=== PATIENT | female | born 1985 | race Asian ===

== ENCOUNTER 2018-04-25 06:31 | Inpatient (IN) | payer OTHER ==
[2018-04-25] MEDS ORDERED: Sodium Chloride 0.9% 10 ML Syringe FLUSH PRN (07:09)
[2018-04-25] MEDS ORDERED: Ondansetron 4 MG/2 ML SDV IVPUSH ONE (07:09)
[2018-04-25] MEDS ORDERED: HYDROmorphone 0.5 MG/0.5 ML SYRINGE IVPUSH ONE (07:09)
[2018-04-25] MEDS ORDERED: Famotidine 20 MG/2 ML SDV IVPUSH ONE (07:09)
[2018-04-25] MEDS ORDERED: Sodium Chloride 0.9% 1,000 ML IV SCH ×3 (07:15→12:00)
--- NOTE | 2018-04-25 07:40 | EDM.PDOC ---
ED HPI GENERAL MEDICAL PROBLEM - General Chief Complaint: Abdominal Pain Stated Complaint: ABDOMINAL PAIN Time Seen by Provider: 04/25/18 07:02 Source of Information: Reports: Patient, RN Notes Reviewed - History of Present Illness INITIAL COMMENTS - FREE TEXT/NARRATIVE: 32-year-old female onset of abdominal pain 2-1/2 days ago. This was associated with nausea, vomiting and diarrhea. The diarrhea stopped yesterday but she continues with right-sided abdominal pain with some radiation to her back and continued nausea and vomiting, especially if she does try to eat or drink. No obvious fever. The diarrhea initially was watery. The pain is fairly persistent , had difficulty sleeping last night. No prior abdominal surgeries. She has had somewhat frequent episodes of similar pain vomiting and diarrhea in the past. Her gallbladder has been looked at in the past, has not been found to have gallbladder disease. Right Abdomen Pain Score (Numeric/FACES): 10 - Related Data Allergies Allergy/AdvReac Type Severity Reaction Status Date / Time No Known Allergies Allergy Verified 04/25/18 06:38 Home Meds: Home Meds Levothyroxine [Synthroid] 50 mcg PO DAILY 04/25/18 [History] Past Medical History - Past Health History Medical/Surgical History: Denies Medical/Surgical History - Past Surgical History Female Surgical History: Reports: Section Social & Family History - Tobacco Use Smoking Status *Q: Never Smoker - Recreational Drug Use Recreational Drug Use: No ED ROS GENERAL - Review of Systems Review Of Systems: See Below Constitutional: Denies: Fever, Chills HEENT: Denies: Sinus Problem, Throat Pain Respiratory: Denies: Shortness of Breath, Pleuritic Chest Pain Cardiovascular: Denies: Chest Pain GI/Abdominal: Reports: Abdominal Pain, Diarrhea, Nausea, Vomiting. Denies: Hematochezia, Melena : Reports: No Symptoms Musculoskeletal: Reports: Back Pain Skin: Reports: No Symptoms Neurological: Reports: No Symptoms ED EXAM, GI/ABD - Physical Exam Exam: See Below General Appearance: Alert, Mild Distress Eyes: Bilateral: Normal Appearance Throat/Mouth: Other (Oral mucosa is dry) Head: No: Facial Swelling Neck: Supple, Full Range of Motion Respiratory/Chest: No Respiratory Distress, Lungs Clear, Normal Breath Sounds Cardiovascular: Regular Rate, Rhythm GI/Abdominal Exam: Soft, Tender (Mild tenderness Right mid abdomen, right flank) . No: Guarding, Rebound Back Exam: Normal Inspection, CVA Tenderness (R) (Very mild). No: Paraspinal Tenderness, Vertebral Tenderness Extremities: Normal Inspection, Normal Range of Motion Neurological: Alert, Oriented, No Motor/Sensory Deficits Skin Exam: Warm, Dry, Normal Color Course - Vital Signs Last Recorded V/S: Last Vital Signs Temp 97.9 F 04/25/18 06:38 Pulse 89 04/25/18 06:38 Resp 16 04/25/18 13:30 BP 128/84 04/25/18 06:38 Pulse Ox 98 04/25/18 13:30 - Orders/Labs/Meds Orders: Active Orders 24 hr Category Date Time Status Patient Status [ADT] Routine ADT 04/25/18 12:30 Active Patient Status [ADT] Routine ADT 04/25/18 15:36 Active Ambulate [RC] ASDIRECTED Care 04/25/18 15:36 Active Communication Order [RC] ROUTINE Care 04/25/18 14:05 Active Cooling Warming Measures [RC] ASDIRECTED Care 04/25/18 14:05 Active Drain Management [RC] QSHIFT Care 04/25/18 15:38 Active Notify Provider [RC] ASDIRECTED Care 04/25/18 14:06 Active Oxygen Therapy [RC] ASDIRECTED Care 04/25/18 14:05 Active Oxygen Therapy [RC] PRN Care 04/25/18 15:36 Active Patient to Empty Bladder [RC] ASDIRECTED Care 04/25/18 11:48 Active Peripheral IV Care [RC] . DIRECTED Care 04/25/18 07:09 Active Pulse Oximetry [RC] ASDIRECTED Care 04/25/18 14:05 Active RT Incentive Spirometry [RC] ASDIRECTED Care 04/25/18 15:36 Active Up ad Rae [RC] ASDIRECTED Care 04/25/18 15:36 Active Up to Chair [RC] ASDIRECTED Care 04/25/18 15:36 Active Verify Patient Consent Obtain [RC] ASDIRECTED Care 04/25/18 11:48 Active Vital Signs [RC] PER UNIT ROUTINE Care 04/25/18 15:36 Active Vital Signs [RC] Q15M Care 04/25/18 14:05 Active Clear Liquid Diet [DIET] Diet 04/25/18 Dinner Active Nothing Per Oral Diet [DIET] Diet 04/25/18 Lunch Active CULTURE URINE [RM] Stat Lab 04/25/18 07:13 Received HCG QUALITATIVE,URINE [URCHEM] Stat Lab 04/25/18 07:13 Ordered UA W/MICROSCOPIC [URIN] Stat Lab 04/25/18 07:13 Ordered Acetaminophen/HYDROcodone [[place] 325-5 MG] Med 04/25/18 15:36 Active 1 tab PO Q4H PRN HYDROmorphone [Dilaudid] Med 04/25/18 14:15 Active 0.5 mg IVPUSH ASDIRECTED PRN Levothyroxine [Synthroid] Med 04/26/18 06:00 Active 50 mcg PO ACBREAKFAST Meperidine [Demerol] Med 04/25/18 14:06 Active 12.5 mg IVPUSH ONETIME PRN Ondansetron [Zofran] Med 04/25/18 15:36 Active 4 mg IVPUSH Q6H PRN Sodium Chloride 0.9% [Normal Saline] 1,000 ml Med 04/25/18 12:00 Active IV ASDIRECTED Sodium Chloride 0.9% [Normal Saline] 1,000 ml Med 04/25/18 15:45 Active IV ASDIRECTED Sodium Chloride 0.9% [Normal Saline] 1,000 ml Med 04/25/18 07:15 Active IV ONETIME Sodium Chloride 0.9% [Saline Flush] Med 04/25/18 07:09 Active 10 ml FLUSH ASDIRECTED PRN cefOXitin [Mefoxin in Dextrose,Iso-Osm 2 GM/50 ML] 2 gm Med 04/25/18 18:00 Active Premix Bag 1 bag IV Q6HR diphenhydrAMINE [Benadryl] Med 04/25/18 14:06 Active 25 mg IVPUSH Q6H PRN fentaNYL [Sublimaze] Med 04/25/18 15:36 Active 25 mcg IVPUSH Q1H PRN fentaNYL [Sublimaze] Med 04/25/18 14:06 Active 50 mcg IVPUSH Q5M PRN Abdominal Binder [OM.PC] Per Unit Routine Ot 04/25/18 15:37 Ordered Peripheral IV Insertion Adult [OM.PC] Stat Oth 04/25/18 07:09 Ordered Schedule Procedure [COMM] Routine Oth 04/25/18 11:48 Ordered Schedule Procedure [COMM] Stat Oth 04/25/18 12:30 Ordered Resuscitation Status Routine Resus Stat 04/25/18 11:48 Ordered Medication Orders Hydrocodone Bitart/Acetaminophen ([place] 325-5 Mg) 1 tab PO Q4H PRN PRN Reason: Pain (moderate 4-6) Diphenhydramine HCl (Benadryl) 25 mg IVPUSH Q6H PRN PRN Reason: Pruritis Fentanyl (Sublimaze) 50 mcg IVPUSH Q5M PRN PRN Reason: Pain Fentanyl (Sublimaze) 25 mcg IVPUSH Q1H PRN PRN Reason: Pain (severe 7-10) Stop: 04/26/18 15:39 Hydromorphone HCl (Dilaudid) 0.5 mg IVPUSH ASDIRECTED PRN PRN Reason: PAIN Sodium Chloride (Normal Saline) 1,000 mls @ 999 mls/hr IV ONETIME KVNG Last Admin: 04/25/18 07:33 Dose: 999 mls/hr Sodium Chloride (Normal Saline) 1,000 mls @ 125 mls/hr IV ASDIRECTED KVNG Sodium Chloride (Normal Saline) 1,000 mls @ 125 mls/hr IV ASDIRECTED KVNG Cefoxitin Sodium 2 gm/ Premix 50 mls @ 100 mls/hr IV Q6HR KVNG Levothyroxine Sodium (Synthroid) 50 mcg PO ACBREAKFAST KVNG Meperidine HCl (Demerol) 12.5 mg IVPUSH ONETIME PRN PRN Reason: Shivering Ondansetron HCl (Zofran) 4 mg IVPUSH Q6H PRN PRN Reason: Nausea/Vomiting Sodium Chloride (Saline Flush) 10 ml FLUSH ASDIRECTED PRN PRN Reason: Keep Vein Open Last Admin: 04/25/18 07:36 Dose: 10 ml Labs: Laboratory Tests 04/25/18 04/25/18 04/25/18 Range/Units 07:13 07:13 07:25 WBC 19.08 H (3.98-10.04) K/mm3 RBC 3.95 L (3.98-5.22) M/mm3 Hgb 11.8 (11.2-15.7) gm/L Hct 35.4 (34.1-44.9) % MCV 89.6 (79.4-94.8) fl MCH 29.9 (25.6-32.2) pg MCHC 33.3 (32.2-35.5) g/dl RDW Std Deviation 40.8 (36.4-46.3) fL Plt Count 333 (182-369) K/mm3 MPV 8.7 L (9.4-12.3) fl Neut % (Auto) 87.7 H (34.0-71.1) % Lymph % (Auto) 5.1 L (19.3-51.7) % [place] % (Auto) 6.7 (4.7-12.5) % Eos % (Auto) 0.1 L (0.7-5.8) Baso % (Auto) 0.1 (0.1-1.2) % Neut # (Auto) 16.75 H (1.56-6.13) K/mm3 Lymph # (Auto) 0.97 L (1.18-3.74) K/mm3 [place] # (Auto) 1.28 H (0.24-0.36) K/mm3 Eos # (Auto) 0.01 L (0.04-0.36) K/mm3 Baso # (Auto) 0.01 (0.01-0.08) K/mm3 Manual Slide Review Normal smear Sodium (136-145) mEq/L Potassium (3.5-5.1) mEq/L Chloride (98-107) mEq/L Carbon Dioxide (21-32) mEq/L Anion Gap (5-15) BUN (7-18) mg/dL Creatinine (0.55-1.02) mg/dL Est Cr Clr Drug Dosing mL/min Estimated GFR (MDRD) (>60) mL/min BUN/Creatinine Ratio (14-18) Glucose (74-106) mg/dL Calcium (8.5-10.1) mg/dL Total Bilirubin (0.2-1.0) mg/dL GGT (5-55) U/L AST (15-37) U/L ALT (14-59) U/L Alkaline Phosphatase (46-116) U/L Total Protein (6.4-8.2) g/dl Albumin (3.4-5.0) g/dl Globulin gm/dL Albumin/Globulin Ratio (1-2) Urine Color Bree H (Yellow) Urine Appearance Clear (Clear) Urine pH 6.5 (5.0-8.0) Ur Specific [place] > or = 1.030 (1.005-1.030) Urine Protein 2+ H (Negative) Urine Glucose (UA) Negative (Negative) Urine Ketones 3+ H (Negative) Urine Occult Blood 2+ H (Negative) Urine Nitrite Positive H (Negative) Urine Bilirubin 1+ H (Negative) Urine Urobilinogen 1.0 (0.2-1.0) Ur Leukocyte Esterase Negative (Negative) Urine RBC 10-20 H (0-5) /hpf Urine WBC 0-5 (0-5) /hpf Ur Epithelial Cells 5-10 H (0-5) /hpf Urine Bacteria Moderate H (FEW) /hpf Urine Mucus Moderate H (FEW) /hpf Urine HCG, Qual Negative (NEGATIVE) 04/25/18 04/25/18 Range/Units 07:25 07:25 WBC (3.98-10.04) K/mm3 RBC (3.98-5.22) M/mm3 Hgb (11.2-15.7) gm/L Hct (34.1-44.9) % MCV (79.4-94.8) fl MCH (25.6-32.2) pg MCHC (32.2-35.5) g/dl RDW Std Deviation (36.4-46.3) fL Plt Count (182-369) K/mm3 MPV (9.4-12.3) fl Neut % (Auto) (34.0-71.1) % Lymph % (Auto) (19.3-51.7) % [place] % (Auto) (4.7-12.5) % Eos % (Auto) (0.7-5.8) Baso % (Auto) (0.1-1.2) % Neut # (Auto) (1.56-6.13) K/mm3 Lymph # (Auto) (1.18-3.74) K/mm3 [place] # (Auto) (0.24-0.36) K/mm3 Eos # (Auto) (0.04-0.36) K/mm3 Baso # (Auto) (0.01-0.08) K/mm3 Manual Slide Review Sodium 136 (136-145) mEq/L Potassium 3.3 L (3.5-5.1) mEq/L Chloride 102 (98-107) mEq/L Carbon Dioxide 25 (21-32) mEq/L Anion Gap 12.3 (5-15) BUN 9 (7-18) mg/dL Creatinine 0.6 (0.55-1.02) mg/dL Est Cr Clr Drug Dosing 118.88 mL/min Estimated GFR (MDRD) > 60 (>60) mL/min BUN/Creatinine Ratio 15.0 (14-18) Glucose 121 H (74-106) mg/dL Calcium 8.9 (8.5-10.1) mg/dL Total Bilirubin 1.5 H (0.2-1.0) mg/dL GGT 56 H (5-55) U/L AST 41 H (15-37) U/L ALT 89 H (14-59) U/L Alkaline Phosphatase 98 (46-116) U/L Total Protein 8.5 H (6.4-8.2) g/dl Albumin 3.4 (3.4-5.0) g/dl Globulin 5.1 gm/dL Albumin/Globulin Ratio 0.7 L (1-2) Urine Color (Yellow) Urine Appearance (Clear) Urine pH (5.0-8.0) Ur Specific [place] (1.005-1.030) Urine Protein (Negative) Urine Glucose (UA) (Negative) Urine Ketones (Negative) Urine Occult Blood (Negative) Urine Nitrite (Negative) Urine Bilirubin (Negative) Urine Urobilinogen (0.2-1.0) Ur Leukocyte Esterase (Negative) Urine RBC (0-5) /hpf Urine WBC (0-5) /hpf Ur Epithelial Cells (0-5) /hpf Urine Bacteria (FEW) /hpf Urine Mucus (FEW) /hpf Urine HCG, Qual (NEGATIVE) Meds: Medications Generic Name Dose Route Start Last Admin Trade Name Freq PRN Reason Stop Dose Admin Hydrocodone Bitart/Acetaminophen 1 tab 04/25/18 15:36 [place] 325-5 Mg PO Q4H PRN Pain (moderate 4-6) Diphenhydramine HCl 25 mg 04/25/18 14:06 Benadryl IVPUSH Q6H PRN Pruritis Fentanyl 50 mcg 04/25/18 14:06 Sublimaze IVPUSH Q5M PRN Pain Fentanyl 25 mcg 04/25/18 15:36 Sublimaze IVPUSH 04/26/18 15:39 Q1H PRN Pain (severe 7-10) Hydromorphone HCl 0.5 mg 04/25/18 14:15 Dilaudid IVPUSH ASDIRECTED PRN PAIN Sodium Chloride 1,000 mls @ 999 mls/hr 04/25/18 07:15 04/25/18 07:33 Normal Saline IV 999 mls/hr ONETIME KVNG Administration Sodium Chloride 1,000 mls @ 125 mls/hr 04/25/18 12:00 Normal Saline IV ASDIRECTED KVNG Sodium Chloride 1,000 mls @ 125 mls/hr 04/25/18 15:45 Normal Saline IV ASDIRECTED KVNG Cefoxitin Sodium 2 gm/ Premix 50 mls @ 100 mls/hr 04/25/18 18:00 IV Q6HR KVNG Levothyroxine Sodium 50 mcg 04/26/18 06:00 Synthroid PO ACBREAKFAST KVNG Meperidine HCl 12.5 mg 04/25/18 14:06 Demerol IVPUSH ONETIME PRN Shivering Ondansetron HCl 4 mg 04/25/18 15:36 Zofran IVPUSH Q6H PRN Nausea/Vomiting Sodium Chloride 10 ml 04/25/18 07:09 04/25/18 07:36 Saline Flush FLUSH 10 ml ASDIRECTED PRN Administration Keep Vein Open Discontinued Medications Generic Name Dose Route Start Last Admin Trade Name Freq PRN Reason Stop Dose Admin Albuterol Confirm 04/25/18 13:54 Proventil Hfa Administered 04/25/18 13:55 Dose 6.7 gm INH .STK-MED ONE Bupivacaine HCl/Epinephrine Bitart Confirm 04/25/18 12:08 04/25/18 12:53 Marcaine 0.5%/Epinephrine 1:200,000 Administered 04/25/18 12:09 50 ml Dose Administration 50 ml .ROUTE .STK-MED ONE Dexamethasone Confirm 04/25/18 12:11 Dexamethasone Administered 04/25/18 12:12 Dose 20 mg .ROUTE .STK-MED ONE Famotidine 20 mg 04/25/18 07:09 04/25/18 07:33 Pepcid IVPUSH 04/25/18 07:10 20 mg ONETIME ONE Administration Fentanyl Confirm 04/25/18 12:11 Sublimaze Administered 04/25/18 12:12 Dose 250 mcg .ROUTE .STK-MED ONE Haloperidol Lactate 1 mg 04/25/18 14:06 Haldol IVPUSH 04/25/18 14:07 ONETIME ONE Hydromorphone HCl 0.5 mg 04/25/18 07:09 04/25/18 07:34 Dilaudid IVPUSH 04/25/18 07:10 0.5 mg ONETIME ONE Administration Hydromorphone HCl Confirm 04/25/18 12:52 Dilaudid Administered 04/25/18 12:53 Dose 0.5 mg .ROUTE .STK-MED ONE Hydromorphone HCl Confirm 04/25/18 14:04 Dilaudid Administered 04/25/18 14:05 Dose 0.5 mg .ROUTE .STK-MED ONE Piperacillin Sod/Tazobactam 100 mls @ 200 mls/hr 04/25/18 08:06 04/25/18 08: 17 Sod 4.5 gm/ Sodium Chloride IV 04/25/18 08:35 200 mls/hr ONETIME ONE Administration Sodium Chloride 1,000 mls @ 75 mls/hr 04/25/18 08:30 04/25/18 08:33 Normal Saline IV 75 mls/hr ASDIRECTED KVNG Administration Lactated Ringer's Confirm 04/25/18 12:10 Ringers, Lactated Administered 04/25/18 12:11 Dose 2,000 mls @ as directed .ROUTE .STK-MED ONE Lidocaine HCl Confirm 04/25/18 12:11 Xylocaine-Mpf 1% Administered 04/25/18 12:12 Dose 4 mls @ as directed .ROUTE .STK-MED ONE Ketamine HCl Confirm 04/25/18 13:13 Ketalar Administered 04/25/18 13:14 Dose 500 mg .ROUTE .STK-MED ONE Ketorolac Tromethamine Confirm 04/25/18 14:40 Toradol Administered 04/25/18 14:41 Dose 30 mg .ROUTE .STK-MED ONE Lidocaine/Epinephrine Confirm 04/25/18 12:08 04/25/18 12:53 Xylocaine 1% With Epinephrine 1:100,000 Administered 04/25/18 12:09 20 ml Dose Administration 20 ml .ROUTE .STK-MED ONE Midazolam HCl Confirm 04/25/18 12:11 Versed 1 Mg/Ml Administered 04/25/18 12:12 Dose 2 mg .ROUTE .STK-MED ONE Ondansetron HCl 4 mg 04/25/18 07:09 04/25/18 07:33 Zofran IVPUSH 04/25/18 07:10 4 mg ONETIME ONE Administration Ondansetron HCl Confirm 04/25/18 12:10 Zofran Administered 04/25/18 12:11 Dose 4 mg .ROUTE .STK-MED ONE Propofol Confirm 04/25/18 12:10 Diprivan 20 Ml Administered 04/25/18 12:11 Dose 400 mg .ROUTE .STK-MED ONE Propofol Confirm 04/25/18 13:19 Diprivan 20 Ml Administered 04/25/18 13:20 Dose 200 mg .ROUTE .STK-MED ONE Rocuronium [place] Confirm 04/25/18 12:10 Zemuron Administered 04/25/18 12:11 Dose 50 mg .ROUTE .STK-MED ONE Succinylcholine Chloride Confirm 04/25/18 12:10 Succinylcholine In Ns Pf Administered 04/25/18 12:11 Dose 100 mg .ROUTE .STK-MED ONE - Re-Assessments/Exams Free Text/Narrative Re-Assessment/Exam: 04/25/18 08:09 White blood count elevated, about 19,000. Liver enzymes slightly elevated, bilirubin 1.5. Urine is dark. Pain is better after Dilaudid 0.5 mg IV but she continues to have moderate tenderness of the right upper quadrant and does have a positive Helton's sign as well. We will get an ultrasound of her gallbladder. I'm going to check a GGT. She may have an ascending cholangitis. I'm going to start Zosyn 4.5 g IV. She also does have moderate bacteria in the urine on micro -, nitrite positive, urine culture has been ordered. 04/25/18 11:15. There has been some delay waiting for radiology report but now I do have that. Report verifies gallbladder filled with what appears to be sludge. Gallbladder wall mildly thickened. Common bile duct and common hepatic duct not visualized, see report for details. Discussed with Dr. Archer our general surgeon battery container finishing hand. He will be in very shortly to visit with patient with planned surgery today. Departure - Departure Time of Disposition: 11:25 Disposition: DC/Tfer to [facility] Condition: Fair Clinical Impression: Cholecystitis - Discharge Information - My Orders Last 24 Hours: My Active Orders 04/25/18 07:09 Peripheral IV Care [RC] . DIRECTED Sodium Chloride 0.9% [Saline Flush] 10 ml FLUSH ASDIRECTED PRN Peripheral IV Insertion Adult [OM.PC] Stat 04/25/18 07:13 CULTURE URINE [RM] Stat 04/25/18 07:15 Sodium Chloride 0.9% [Normal Saline] 1,000 ml IV ONETIME - Assessment/Plan Last 24 Hours: My Active Orders 04/25/18 07:09 Peripheral IV Care [RC] . DIRECTED Sodium Chloride 0.9% [Saline Flush] 10 ml FLUSH ASDIRECTED PRN Peripheral IV Insertion Adult [OM.PC] Stat 04/25/18 07:13 CULTURE URINE [RM] Stat 04/25/18 07:15 Sodium Chloride 0.9% [Normal Saline] 1,000 ml IV ONETIME
[2018-04-25] MEDS ORDERED: Piperacillin/Tazobactam 4.5 GM in Sodium Chloride 0.9% 100 ML IV ONE (08:06)
--- NOTE | 2018-04-25 11:11 | US ---
Limited abdominal ultrasound: Multiple real-time images were obtained of the right upper abdomen. Liver is not optimally seen due to bowel gas and body habitus. No discrete focal abnormality is seen within the liver. Gallbladder is filled with material presumably due sludge as I do not see any significant shadowing to indicate gallstones. Gallbladder wall is slightly prominent in size. CHD and CBD could not be visualized. Right kidney shows no hydronephrosis or discrete mass. Pancreas is partially obscured by bowel gas. No focal abnormality is seen within the visualized pancreas. Inferior vena cava is patent. Portal vein shows normal hepatopedal flow. Impression: 1. Less than optimal study due to patient body habitus and bowel gas. 2. Gallbladder filled with material which appears to be sludge as I do not see any significant shadowing to indicate gallstones. Gallbladder wall is mildly prominent. 3. CHD and CBD could not be visualized. Diagnostic code #3
--- NOTE | 2018-04-25 11:54 | PCM.HP ---
H&P History of Present Illness - General Date of Service: 04/25/18 Source of Information: Patient, Provider - History of Present Illness Initial Comments - Free Text/Narative: 32-year-old female has had intermittent episodes of upper abdominal pain beginning last winter. She has been evaluated for cholelithiasis and biliary colic but all previous studies for unremarkable and so she's never had a cholecystectomy. She's been on an antiacid for reflux symptoms. Yesterday she experienced severe right upper quadrant abdominal pain which was associated with anorexia nausea and emesis. She presented to the emergency room for evaluation and was found to have a leukocytosis of 19,000 and an ultrasound of the right upper quadrant which showed biliary sludge. Because of overlying bowel the airport security screener could not visualize the common bile duct. Her bilirubin was slightly elevated. I was asked to see her for cholecystectomy. Right Abdomen Pain Score (Numeric/FACES): 10 - Related Data Allergies/Adverse Reactions: Allergies Allergy/AdvReac Type Severity Reaction Status Date / Time No Known Allergies Allergy Verified 04/25/18 06:38 Home Medications: Home Meds Levothyroxine [Synthroid] 50 mcg PO DAILY 04/25/18 [History] Past Medical History - Past Health History Medical/Surgical History: Denies Medical/Surgical History - Past Surgical History Female Surgical History: Reports: Section Social & Family History - Tobacco Use Smoking Status *Q: Never Smoker - Recreational Drug Use Recreational Drug Use: No H&P Review of Systems - Review of Systems: Review Of Systems: ROS reveals no pertinent complaints other than HPI. Exam - Exam Exam: See Below - Vital Signs Vital Signs: Last Vital Signs Temp 36.6 C 04/25/18 06:38 Pulse 89 04/25/18 06:38 Resp 16 04/25/18 06:38 BP 128/84 04/25/18 06:38 Pulse Ox 98 04/25/18 06:38 Weight: 90.718 kg - Exam General: Alert, Oriented, Cooperative, Mild Distress HEENT: EOMI, Hearing Intact Neck: Supple, Trachea Midline Lungs: Clear to Auscultation, Normal Respiratory Effort Cardiovascular: Regular Rate, Regular Rhythm, Normal S1, Normal S2 GI/Abdominal Exam: Tender (Right upper quadrant) (Female) Exam: Deferred Rectal (Female) Exam: Deferred Back Exam: Normal Inspection Extremities: Non-Tender Skin: Warm, Dry, Intact, Incision (Pfannenstiel) Neuro Extensive - Mental Status: Alert, Oriented x3, Normal Mood/Affect, Normal Cognition Psychiatric: Alert, Normal Affect, Normal Mood - Patient Data Lab Results Last 24 hrs: Laboratory Results - last 24 hr 04/25/18 04/25/18 04/25/18 Range/Units 07:13 07:13 07:25 WBC 19.08 H (3.98-10.04) K/mm3 RBC 3.95 L (3.98-5.22) M/mm3 Hgb 11.8 (11.2-15.7) gm/L Hct 35.4 (34.1-44.9) % MCV 89.6 (79.4-94.8) fl MCH 29.9 (25.6-32.2) pg MCHC 33.3 (32.2-35.5) g/dl RDW Std Deviation 40.8 (36.4-46.3) fL Plt Count 333 (182-369) K/mm3 MPV 8.7 L (9.4-12.3) fl Neut % (Auto) 87.7 H (34.0-71.1) % Lymph % (Auto) 5.1 L (19.3-51.7) % [place] % (Auto) 6.7 (4.7-12.5) % Eos % (Auto) 0.1 L (0.7-5.8) Baso % (Auto) 0.1 (0.1-1.2) % Neut # (Auto) 16.75 H (1.56-6.13) K/mm3 Lymph # (Auto) 0.97 L (1.18-3.74) K/mm3 [place] # (Auto) 1.28 H (0.24-0.36) K/mm3 Eos # (Auto) 0.01 L (0.04-0.36) K/mm3 Baso # (Auto) 0.01 (0.01-0.08) K/mm3 Manual Slide Review Normal smear Sodium (136-145) mEq/L Potassium (3.5-5.1) mEq/L Chloride (98-107) mEq/L Carbon Dioxide (21-32) mEq/L Anion Gap (5-15) BUN (7-18) mg/dL Creatinine (0.55-1.02) mg/dL Est Cr Clr Drug Dosing mL/min Estimated GFR (MDRD) (>60) mL/min BUN/Creatinine Ratio (14-18) Glucose (74-106) mg/dL Calcium (8.5-10.1) mg/dL Total Bilirubin (0.2-1.0) mg/dL GGT (5-55) U/L AST (15-37) U/L ALT (14-59) U/L Alkaline Phosphatase (46-116) U/L Total Protein (6.4-8.2) g/dl Albumin (3.4-5.0) g/dl Globulin gm/dL Albumin/Globulin Ratio (1-2) Urine Color Bree H (Yellow) Urine Appearance Clear (Clear) Urine pH 6.5 (5.0-8.0) Ur Specific [place] > or = 1.030 (1.005-1.030) Urine Protein 2+ H (Negative) Urine Glucose (UA) Negative (Negative) Urine Ketones 3+ H (Negative) Urine Occult Blood 2+ H (Negative) Urine Nitrite Positive H (Negative) Urine Bilirubin 1+ H (Negative) Urine Urobilinogen 1.0 (0.2-1.0) Ur Leukocyte Esterase Negative (Negative) Urine RBC 10-20 H (0-5) /hpf Urine WBC 0-5 (0-5) /hpf Ur Epithelial Cells 5-10 H (0-5) /hpf Urine Bacteria Moderate H (FEW) /hpf Urine Mucus Moderate H (FEW) /hpf Urine HCG, Qual Negative (NEGATIVE) 04/25/18 04/25/18 Range/Units 07:25 07:25 WBC (3.98-10.04) K/mm3 RBC (3.98-5.22) M/mm3 Hgb (11.2-15.7) gm/L Hct (34.1-44.9) % MCV (79.4-94.8) fl MCH (25.6-32.2) pg MCHC (32.2-35.5) g/dl RDW Std Deviation (36.4-46.3) fL Plt Count (182-369) K/mm3 MPV (9.4-12.3) fl Neut % (Auto) (34.0-71.1) % Lymph % (Auto) (19.3-51.7) % [place] % (Auto) (4.7-12.5) % Eos % (Auto) (0.7-5.8) Baso % (Auto) (0.1-1.2) % Neut # (Auto) (1.56-6.13) K/mm3 Lymph # (Auto) (1.18-3.74) K/mm3 [place] # (Auto) (0.24-0.36) K/mm3 Eos # (Auto) (0.04-0.36) K/mm3 Baso # (Auto) (0.01-0.08) K/mm3 Manual Slide Review Sodium 136 (136-145) mEq/L Potassium 3.3 L (3.5-5.1) mEq/L Chloride 102 (98-107) mEq/L Carbon Dioxide 25 (21-32) mEq/L Anion Gap 12.3 (5-15) BUN 9 (7-18) mg/dL Creatinine 0.6 (0.55-1.02) mg/dL Est Cr Clr Drug Dosing 118.88 mL/min Estimated GFR (MDRD) > 60 (>60) mL/min BUN/Creatinine Ratio 15.0 (14-18) Glucose 121 H (74-106) mg/dL Calcium 8.9 (8.5-10.1) mg/dL Total Bilirubin 1.5 H (0.2-1.0) mg/dL GGT 56 H (5-55) U/L AST 41 H (15-37) U/L ALT 89 H (14-59) U/L Alkaline Phosphatase 98 (46-116) U/L Total Protein 8.5 H (6.4-8.2) g/dl Albumin 3.4 (3.4-5.0) g/dl Globulin 5.1 gm/dL Albumin/Globulin Ratio 0.7 L (1-2) Urine Color (Yellow) Urine Appearance (Clear) Urine pH (5.0-8.0) Ur Specific [place] (1.005-1.030) Urine Protein (Negative) Urine Glucose (UA) (Negative) Urine Ketones (Negative) Urine Occult Blood (Negative) Urine Nitrite (Negative) Urine Bilirubin (Negative) Urine Urobilinogen (0.2-1.0) Ur Leukocyte Esterase (Negative) Urine RBC (0-5) /hpf Urine WBC (0-5) /hpf Ur Epithelial Cells (0-5) /hpf Urine Bacteria (FEW) /hpf Urine Mucus (FEW) /hpf Urine HCG, Qual (NEGATIVE) Result Diagrams: 04/25/18 07:25 04/25/18 07:25 - Problem List (1) Acute cholecystitis SNOMED Code(s): 47152414 ICD Code: K81.0 - ACUTE CHOLECYSTITIS Status: Acute Priority: Medium Current Visit: Yes (2) UTI (urinary tract infection) SNOMED Code(s): 51284990 ICD Code: N39.0 - URINARY TRACT INFECTION, SITE NOT SPECIFIED Status: Acute Priority: Low Current Visit: Yes Qualifiers: Urinary tract infection type: site unspecified Hematuria presence: without hematuria Qualified Code(s): N39.0 - Urinary tract infection, site not specified Problem List Initiated/Reviewed/Updated: Yes Orders Last 24hrs: Active Orders 24 hr Category Date Time Status Patient to Empty Bladder [RC] ASDIRECTED Care 04/25/18 11:48 Ordered Peripheral IV Care [RC] . DIRECTED Care 04/25/18 07:09 Active Verify Patient Consent Obtain [RC] ASDIRECTED Care 04/25/18 11:48 Ordered Nothing Per Oral Diet [DIET] Diet 04/25/18 Lunch Ordered CULTURE URINE [RM] Stat Lab 04/25/18 07:13 Received HCG QUALITATIVE,URINE [URCHEM] Stat Lab 04/25/18 07:13 Ordered UA W/MICROSCOPIC [URIN] Stat Lab 04/25/18 07:13 Ordered Sodium Chloride 0.9% @ 125 MLS/HR (1000ml) Med 04/25/18 12:00 Ordered Sodium Chloride 0.9% [Normal Saline] 1,000 ml IV ASDIRECTED Sodium Chloride 0.9% [Normal Saline] 1,000 ml Med 04/25/18 08:30 Active IV ASDIRECTED Sodium Chloride 0.9% [Normal Saline] 1,000 ml Med 04/25/18 07:15 Active IV ONETIME Sodium Chloride 0.9% [Saline Flush] Med 04/25/18 07:09 Active 10 ml FLUSH ASDIRECTED PRN Peripheral IV Insertion Adult [OM.PC] Stat Oth 04/25/18 07:09 Ordered Schedule Procedure [COMM] Routine Oth 04/25/18 11:48 Ordered Resuscitation Status Routine Resus Stat 04/25/18 11:48 Ordered Medication Orders Sodium Chloride (Normal Saline) 1,000 mls @ 999 mls/hr IV ONETIME KVNG Last Admin: 04/25/18 07:33 Dose: 999 mls/hr Sodium Chloride (Normal Saline) 1,000 mls @ 75 mls/hr IV ASDIRECTED KVNG Last Admin: 04/25/18 08:33 Dose: 75 mls/hr Sodium Chloride (Saline Flush) 10 ml FLUSH ASDIRECTED PRN PRN Reason: Keep Vein Open Last Admin: 04/25/18 07:36 Dose: 10 ml Assessment/Plan Comment:: I recommended laparoscopic cholecystectomy. I discussed the benefits risks as well as the alternatives with the patient. She wants to proceed as soon as possible. IV antibiotics for the acute cholecystitis should cover the common organisms associated with UTI. Plan: Laparoscopic possible open cholecystectomy.
[2018-04-25] MEDS ORDERED: Bupivacaine 0.5%/EPINEPHrine 1:200,000 50 ML MDV ONE (12:08)
[2018-04-25] MEDS ORDERED: Lidocaine 1% with EPINEPHrine 1:100,000 20 ML MDV ONE (12:08)
[2018-04-25] MEDS ORDERED: Rocuronium 50 MG/5 ML Vial ONE (12:10)
[2018-04-25] MEDS ORDERED: Succinylcholine/Normal Saline 100 MG/5 ML Syringe ONE (12:10)
[2018-04-25] MEDS ORDERED: Ondansetron 4 MG/2 ML SDV ONE (12:10)
[2018-04-25] MEDS ORDERED: Propofol 200 MG/20 ML SDV ONE ×2 (12:10→13:19)
[2018-04-25] MEDS ORDERED: Lactated Ringers 2,000 ML ONE (12:10)
[2018-04-25] MEDS ORDERED: Dexamethasone 4 MG/ML 5 ML MDV ONE (12:11)
[2018-04-25] MEDS ORDERED: Midazolam 1 MG/ML 2 ML SDV ONE (12:11)
[2018-04-25] MEDS ORDERED: Lidocaine 1% 4 ML ONE (12:11)
[2018-04-25] MEDS ORDERED: fentaNYL 250 MCG/5 ML SDV ONE (12:11)
[2018-04-25] MEDS ORDERED: HYDROmorphone 0.5 MG/0.5 ML Syringe ONE ×2 (12:52→14:04)
[2018-04-25] MEDS ORDERED: Ketamine 500 mg/10 ML MDV ONE (13:13)
--- NOTE | 2018-04-25 13:29 | PCM.PREANE ---
Preanesthetic Assessment - Anesthesia/Transfusion/Family Hx Anesthesia History: Prior Anesthesia Without Reaction Family History of Anesthesia Reaction: No Transfusion History: No Prior Transfusion(s) - Review of Systems General: Fatigue, Appetite Pulmonary: Other (Occasional Smoker.) Cardiovascular: No Symptoms Gastrointestinal: Abdominal Pain, Decreased Appetite, Nausea Neurological: No Symptoms Other: Reports: Thyroid Problems - Physical Assessment NPO Status Date: 04/24/18 NPO Status Time: 23:00 O2 Sat by Pulse Oximetry: 98 Respiratory Rate: 16 Vital Signs: Last Vital Signs Temp 36.6 C 04/25/18 06:38 Pulse 89 04/25/18 06:38 Resp 16 04/25/18 06:38 BP 128/84 04/25/18 06:38 Pulse Ox 98 04/25/18 06:38 Height: 1.65 m Weight: 90.718 kg ASA Class: 2E Mental Status: Alert & Oriented x3 Airway Class: Mallampati = 1 Dentition: Reports: Normal Dentition, Implants Thyro-Mental Finger Breadths: 2 Mouth Opening Finger Breadths: 3 ROM/Head Extension: Full Lungs: Clear to Auscultation, Normal Respiratory Effort, Decreased Breath Sounds Cardiovascular: Regular Rate, Regular Rhythm - Lab Values: Laboratory Last Values WBC 19.08 K/mm3 (3.98-10.04) H 04/25/18 07:25 RBC 3.95 M/mm3 (3.98-5.22) L 04/25/18 07:25 Hgb 11.8 gm/L (11.2-15.7) 04/25/18 07:25 Hct 35.4 % (34.1-44.9) 04/25/18 07:25 MCV 89.6 fl (79.4-94.8) 04/25/18 07:25 MCH 29.9 pg (25.6-32.2) 04/25/18 07:25 MCHC 33.3 g/dl (32.2-35.5) 04/25/18 07:25 RDW Std Deviation 40.8 fL (36.4-46.3) 04/25/18 07:25 Plt Count 333 K/mm3 (182-369) 04/25/18 07:25 MPV 8.7 fl (9.4-12.3) L 04/25/18 07:25 Neut % (Auto) 87.7 % (34.0-71.1) H 04/25/18 07:25 Lymph % (Auto) 5.1 % (19.3-51.7) L 04/25/18 07:25 [place] % (Auto) 6.7 % (4.7-12.5) 04/25/18 07:25 Eos % (Auto) 0.1 (0.7-5.8) L 04/25/18 07:25 Baso % (Auto) 0.1 % (0.1-1.2) 04/25/18 07:25 Neut # (Auto) 16.75 K/mm3 (1.56-6.13) H 04/25/18 07:25 Lymph # (Auto) 0.97 K/mm3 (1.18-3.74) L 04/25/18 07:25 [place] # (Auto) 1.28 K/mm3 (0.24-0.36) H 04/25/18 07:25 Eos # (Auto) 0.01 K/mm3 (0.04-0.36) L 04/25/18 07:25 Baso # (Auto) 0.01 K/mm3 (0.01-0.08) 04/25/18 07:25 Manual Slide Review Normal smear 04/25/18 07:25 Sodium 136 mEq/L (136-145) 04/25/18 07:25 Potassium 3.3 mEq/L (3.5-5.1) L 04/25/18 07:25 Chloride 102 mEq/L (98-107) 04/25/18 07:25 Carbon Dioxide 25 mEq/L (21-32) 04/25/18 07:25 Anion Gap 12.3 (5-15) 04/25/18 07:25 BUN 9 mg/dL (7-18) 04/25/18 07:25 Creatinine 0.6 mg/dL (0.55-1.02) 04/25/18 07:25 Est Cr Clr Drug Dosing 118.88 mL/min 04/25/18 07:25 Estimated GFR (MDRD) > 60 mL/min (>60) 04/25/18 07:25 BUN/Creatinine Ratio 15.0 (14-18) 04/25/18 07:25 Glucose 121 mg/dL (74-106) H 04/25/18 07:25 Calcium 8.9 mg/dL (8.5-10.1) 04/25/18 07:25 Total Bilirubin 1.5 mg/dL (0.2-1.0) H 04/25/18 07:25 GGT 56 U/L (5-55) H 04/25/18 07:25 AST 41 U/L (15-37) H 04/25/18 07:25 ALT 89 U/L (14-59) H 04/25/18 07:25 Alkaline Phosphatase 98 U/L (46-116) 04/25/18 07:25 Total Protein 8.5 g/dl (6.4-8.2) H 04/25/18 07:25 Albumin 3.4 g/dl (3.4-5.0) 04/25/18 07:25 Globulin 5.1 gm/dL 04/25/18 07:25 Albumin/Globulin Ratio 0.7 (1-2) L 04/25/18 07:25 Urine Color Bree (Yellow) H 04/25/18 07:13 Urine Appearance Clear (Clear) 04/25/18 07:13 Urine pH 6.5 (5.0-8.0) 04/25/18 07:13 Ur Specific [place] > or = 1.030 (1.005-1.030) 04/25/18 07:13 Urine Protein 2+ (Negative) H 04/25/18 07:13 Urine Glucose (UA) Negative (Negative) 04/25/18 07:13 Urine Ketones 3+ (Negative) H 04/25/18 07:13 Urine Occult Blood 2+ (Negative) H 04/25/18 07:13 Urine Nitrite Positive (Negative) H 04/25/18 07:13 Urine Bilirubin 1+ (Negative) H 04/25/18 07:13 Urine Urobilinogen 1.0 (0.2-1.0) 04/25/18 07:13 Ur Leukocyte Esterase Negative (Negative) 04/25/18 07:13 Urine RBC 10-20 /hpf (0-5) H 04/25/18 07:13 Urine WBC 0-5 /hpf (0-5) 04/25/18 07:13 Ur Epithelial Cells 5-10 /hpf (0-5) H 04/25/18 07:13 Urine Bacteria Moderate /hpf (FEW) H 04/25/18 07:13 Urine Mucus Moderate /hpf (FEW) H 04/25/18 07:13 Urine HCG, Qual Negative (NEGATIVE) 04/25/18 07:13 - Allergies Allergies/Adverse Reactions: Allergies Allergy/AdvReac Type Severity Reaction Status Date / Time No Known Allergies Allergy Verified 04/25/18 06:38 - Acknowledgements Anesthesia Type Planned: General Anesthesia Pt an Appropriate Candidate for the Planned Anesthesia: Yes Alternatives and Risks of Anesthesia Discussed w Pt/Guardian: Yes Pt/Guardian Understands and Agrees with Anesthesia Plan: Yes PreAnesthesia Questionnaire - Past Health History Medical/Surgical History: Denies Medical/Surgical History - Past Surgical History Female Surgical History: Reports: Section - SUBSTANCE USE Smoking Status *Q: Never Smoker Recreational Drug Use History: No - HOME MEDS Home Medications: Home Meds Levothyroxine [Synthroid] 50 mcg PO DAILY 04/25/18 [History] - CURRENT (IN HOUSE) MEDS Current Meds: Current Medications Sodium Chloride (Normal Saline) 1,000 mls @ 999 mls/hr IV ONETIME KVNG Last Admin: 04/25/18 07:33 Dose: 999 mls/hr Sodium Chloride (Normal Saline) 1,000 mls @ 125 mls/hr IV ASDIRECTED KVNG Sodium Chloride (Saline Flush) 10 ml FLUSH ASDIRECTED PRN PRN Reason: Keep Vein Open Last Admin: 04/25/18 07:36 Dose: 10 ml Discontinued Medications Bupivacaine HCl/Epinephrine Bitart (Marcaine 0.5%/Epinephrine 1:200,000) Confirm Administered Dose 50 ml .ROUTE .STK-MED ONE Stop: 04/25/18 12:09 Last Admin: 04/25/18 12:53 Dose: 50 ml Dexamethasone (Dexamethasone) Confirm Administered Dose 20 mg .ROUTE .STK-MED ONE Stop: 04/25/18 12:12 Famotidine (Pepcid) 20 mg IVPUSH ONETIME ONE Stop: 04/25/18 07:10 Last Admin: 04/25/18 07:33 Dose: 20 mg Fentanyl (Sublimaze) Confirm Administered Dose 250 mcg .ROUTE .STK-MED ONE Stop: 04/25/18 12:12 Hydromorphone HCl (Dilaudid) 0.5 mg IVPUSH ONETIME ONE Stop: 04/25/18 07:10 Last Admin: 04/25/18 07:34 Dose: 0.5 mg Hydromorphone HCl (Dilaudid) Confirm Administered Dose 0.5 mg .ROUTE .STK-MED ONE Stop: 04/25/18 12:53 Piperacillin Sod/Tazobactam (Sod 4.5 gm/ Sodium Chloride) 100 mls @ 200 mls/hr IV ONETIME ONE Stop: 04/25/18 08:35 Last Admin: 04/25/18 08:17 Dose: 200 mls/hr Sodium Chloride (Normal Saline) 1,000 mls @ 75 mls/hr IV ASDIRECTED KVNG Last Admin: 04/25/18 08:33 Dose: 75 mls/hr Lactated Ringer's (Ringers, Lactated) Confirm Administered Dose 2,000 mls @ as directed .ROUTE .STK-MED ONE Stop: 04/25/18 12:11 Lidocaine HCl (Xylocaine-Mpf 1%) Confirm Administered Dose 4 mls @ as directed .ROUTE .STK-MED ONE Stop: 04/25/18 12:12 Ketamine HCl (Ketalar) Confirm Administered Dose 500 mg .ROUTE .STK-MED ONE Stop: 04/25/18 13:14 Lidocaine/Epinephrine (Xylocaine 1% With Epinephrine 1:100,000) Confirm Administered Dose 20 ml .ROUTE .STK-MED ONE Stop: 04/25/18 12:09 Last Admin: 04/25/18 12:53 Dose: 20 ml Midazolam HCl (Versed 1 Mg/Ml) Confirm Administered Dose 2 mg .ROUTE .STK-MED ONE Stop: 04/25/18 12:12 Ondansetron HCl (Zofran) 4 mg IVPUSH ONETIME ONE Stop: 04/25/18 07:10 Last Admin: 04/25/18 07:33 Dose: 4 mg Ondansetron HCl (Zofran) Confirm Administered Dose 4 mg .ROUTE .STK-MED ONE Stop: 04/25/18 12:11 Propofol (Diprivan 20 Ml) Confirm Administered Dose 400 mg .ROUTE .STK-MED ONE Stop: 04/25/18 12:11 Propofol (Diprivan 20 Ml) Confirm Administered Dose 200 mg .ROUTE .STK-MED ONE Stop: 04/25/18 13:20 Rocuronium [place] (Zemuron) Confirm Administered Dose 50 mg .ROUTE .STK-MED ONE Stop: 04/25/18 12:11 Succinylcholine Chloride (Succinylcholine In Ns Pf) Confirm Administered Dose 100 mg .ROUTE .STK-MED ONE Stop: 04/25/18 12:11
[2018-04-25] MEDS ORDERED: Albuterol 6.7 GM Inhaler INH ONE (13:54)
[2018-04-25] MEDS ORDERED: fentaNYL 100 MCG/2 ML SDV IVPUSH PRN (14:06)
[2018-04-25] MEDS ORDERED: Haloperidol Lactate 5 MG/ML SDV IVPUSH ONE (14:06)
[2018-04-25] MEDS ORDERED: Meperidine PF 50 MG/ML Syringe IVPUSH PRN (14:06)
[2018-04-25] MEDS ORDERED: diphenhydrAMINE 50 MG/ML SDV IVPUSH PRN (14:06)
[2018-04-25] MEDS ORDERED: HYDROmorphone 0.5 MG/0.5 ML Syringe IVPUSH PRN (14:15)
[2018-04-25] MEDS ORDERED: Ketorolac 30 MG/ML SDV ONE (14:40)
[2018-04-25] MEDS ORDERED: Ondansetron 4 MG/2 ML SDV IVPUSH PRN (15:36)
--- NOTE | 2018-04-25 15:36 | PCM.OPNOTE ---
- General Post-Op/Procedure Note Date of Surgery/Procedure: 04/25/18 Operative Procedure(s): Laparoscopic cholecystectomy with SAMANTA drain placement Findings: Diffuse adhesions between the capsule of the liver and the overlying peritoneum. The omentum was densely adherent to the entire undersurface of the liver surrounding the gallbladder as well. The gallbladder was thickened densely sclerotic acutely inflamed and ischemic. The gallbladder contained sludge and no stones. Pre Op Diagnosis: Acute cholecystitis Post-Op Diagnosis: Acute and chronic cholecystitis pregangrenous Anesthesia Technique: General ET Tube, Local Primary Surgeon: Asa Archer Pathology: Gallbladder EBL in mLs: 500 Complications: None Condition: Good Free Text/Narrative:: After adequate general endotracheal tube anesthesia was obtained the patient's abdomen was prepped and draped sterilely for a laparoscopic cholecystectomy. A supraumbilical incision was made with a 15 blade after local analgesia was given and deepened to the midline. The abdomen was cannulated with a 12 mm camera port followed by CO2 pneumoperitoneum. Exploration revealed a hostile right upper quadrant. Because of this careful placement strategically placed had to be done in order for me to begin taking down the multiple adhesions. For this I placed 3--5 mm working ports in the right upper quadrant in different areas. 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 I used sucker dissection and the hook cautery to first remove the adhesions between liver capsule and the peritoneum. I was unable to reach without a lot of tension on the camera the liver because of the length of her abdomen and I closed the original supraumbilical incision site with an 0 Vicryl [id number] and then made another camera port incision site 4 cm cephalad. I then was able to suction dissect the omentum from beneath the undersurface of the liver and gallbladder to pass the falciform ligament. There was some bleeding from this effort because the adhesions were dense. There was no obvious bowel injury or bile injury during this process. The gallbladder was densely thickened and I opened it to decompress it with cautery. I then grasped the gallbladder and retracted it and the liver in a cephalad direction. I grasped the area of Carrera's pouch and then used the cautery to dissect out the cystic duct. The artery was sclerosed and not visualized. The duct was 8 mm in diameter. I used 10 mm clips proximally and distally to clip the duct in continuity. It was divided with Endo scissors. I then took the gallbladder down from its bed in a retrograde fashion with the hook cautery. The gallbladder was placed in a specimen bag and it was removed through the umbilicus. I irrigated out the right upper quadrant read several liters of saline. I placed a 10 mm Sylvester- Haynes drain through the right lateral 5 mm port site. The drain was placed in the gallbladder bed. ID cannulated the abdomen under direct vision and there was no bleeding from the port sites. I closed the camera port site with a figure -of-eight 0 Vicryl. The subcutaneous tissues and skin were closed with 3-0 Vicryl and 4-0 subcuticular Vicryl. Steri-Strips and a dressing were applied. Marketing Services Specialist photographs were taken for the patient and for the medical record.
--- NOTE | 2018-04-25 15:58 | PCM.POSTAN ---
POST ANESTHESIA ASSESSMENT - MENTAL STATUS Mental Status: Somnolent - VITAL SIGNS Pulse Rate: 95 SaO2: 98 Resp Rate: 18 Blood Pressure: 143/93 Temperature: 37.1 C - RESPIRATORY Respiratory Status: Respiratory Rate WNL, Airway Patent, O2 Saturation Stable, Supplemental Oxygen - CARDIOVASCULAR CV Status: Pulse Rate WNL, Blood Pressure Stable - GASTROINTESTINAL GI Status: No Symptoms - PAIN Pain Score: 0 - POST OP HYDRATION Hydration Status: Adequate & Stable
[2018-04-25] MEDS: cefOXitin 2 GM in Premix Bag 1 BAG IV SCH ×2 (17:25→23:23)
[2018-04-25] MEDS: Sodium Chloride 0.9% 1,000 ML IV SCH (17:25)
[2018-04-25] MEDS: fentaNYL 100 MCG/2 ML SDV IVPUSH PRN (20:12)
[2018-04-25] MEDS: Acetaminophen/HYDROcodone 325-5 MG Tab PO PRN (23:26)
[2018-04-26] MEDS: Sodium Chloride 0.9% 1,000 ML IV SCH ×3 (02:10→20:41)
[2018-04-26] MEDS: fentaNYL 100 MCG/2 ML SDV IVPUSH PRN ×4 (03:07→13:12)
[2018-04-26] MEDS: Levothyroxine 50 MCG Tab PO SCH (06:32)
[2018-04-26] MEDS: cefOXitin 2 GM in Premix Bag 1 BAG IV SCH ×4 (06:33→23:01)
[2018-04-26] MEDS: Acetaminophen/HYDROcodone 325-5 MG Tab PO PRN ×4 (07:32→20:39)
--- NOTE | 2018-04-26 07:51 | PCM.SURGPN ---
- General Info Date of Service: 04/26/18 POD#: 1 Functional Status: Reports: Pain Controlled, Tolerating Diet, Urinating - Patient Data Vitals - Most Recent: Last Vital Signs Temp 36.8 C 04/26/18 03:13 Pulse 71 04/26/18 03:13 Resp 18 04/26/18 03:13 BP 124/79 04/26/18 03:13 Pulse Ox 98 04/26/18 03:13 Weight - Most Recent: 95.663 kg I&O - Last 24 Hours: Intake & Output 04/25/18 04/26/18 04/26/18 22:59 06:59 14:59 Intake Total 150 1594 Output Total 40 100 Balance 110 1494 Lab Results Last 24 Hrs: Laboratory Results - last 24 hr 04/25/18 04/25/18 04/25/18 Range/Units 07:25 07:25 07:25 Manual Slide Review Normal smear Sodium 136 (136-145) mEq/L Potassium 3.3 L (3.5-5.1) mEq/L Chloride 102 (98-107) mEq/L Carbon Dioxide 25 (21-32) mEq/L Anion Gap 12.3 (5-15) BUN 9 (7-18) mg/dL Creatinine 0.6 (0.55-1.02) mg/dL Est Cr Clr Drug Dosing 118.88 mL/min Estimated GFR (MDRD) > 60 (>60) mL/min BUN/Creatinine Ratio 15.0 (14-18) Glucose 121 H (74-106) mg/dL Calcium 8.9 (8.5-10.1) mg/dL Total Bilirubin 1.5 H (0.2-1.0) mg/dL GGT 56 H (5-55) U/L AST 41 H (15-37) U/L ALT 89 H (14-59) U/L Alkaline Phosphatase 98 (46-116) U/L Total Protein 8.5 H (6.4-8.2) g/dl Albumin 3.4 (3.4-5.0) g/dl Globulin 5.1 gm/dL Albumin/Globulin Ratio 0.7 L (1-2) Med Orders - Current: Current Medications Hydrocodone Bitart/Acetaminophen ([place] 325-5 Mg) 1 tab PO Q4H PRN PRN Reason: Pain (moderate 4-6) Last Admin: 05/29/18 07:32 Dose: 1 tab Fentanyl (Sublimaze) 25 mcg IVPUSH Q1H PRN PRN Reason: Pain (severe 7-10) Stop: 04/26/18 15:39 Last Admin: 04/26/18 06:29 Dose: 25 mcg Sodium Chloride (Normal Saline) 1,000 mls @ 125 mls/hr IV ASDIRECTED [facility] Last Admin: 04/26/18 02:10 Dose: 125 mls/hr Cefoxitin Sodium 2 gm/ Premix 50 mls @ 100 mls/hr IV Q6HR [facility] Last Admin: 04/26/18 06:33 Dose: 100 mls/hr Levothyroxine Sodium (Synthroid) 50 mcg PO ACBREAKFAST [facility] Last Admin: 04/26/18 06:32 Dose: 50 mcg Ondansetron HCl (Zofran) 4 mg IVPUSH Q6H PRN PRN Reason: Nausea/Vomiting Sodium Chloride (Saline Flush) 10 ml FLUSH ASDIRECTED PRN PRN Reason: Keep Vein Open Last Admin: 04/25/18 07:36 Dose: 10 ml Discontinued Medications Albuterol (Proventil Hfa) Confirm Administered Dose 6.7 gm INH .STK-MED ONE Stop: 04/25/18 13:55 Bupivacaine HCl/Epinephrine Bitart ([place] 0.5%/Epinephrine 1:200,000) Confirm Administered Dose 50 ml .ROUTE .STK-MED ONE Stop: 04/25/18 12:09 Last Admin: 04/25/18 12:53 Dose: 9 ml Dexamethasone (Dexamethasone) Confirm Administered Dose 20 mg .ROUTE .STK-MED ONE Stop: 04/25/18 12:12 Diphenhydramine HCl (Benadryl) 25 mg IVPUSH Q6H PRN PRN Reason: Pruritis Famotidine (Pepcid) 20 mg IVPUSH ONETIME ONE Stop: 04/25/18 07:10 Last Admin: 04/25/18 07:33 Dose: 20 mg Fentanyl (Sublimaze) Confirm Administered Dose 250 mcg .ROUTE .STK-MED ONE Stop: 04/25/18 12:12 Fentanyl (Sublimaze) 50 mcg IVPUSH Q5M PRN PRN Reason: Pain Haloperidol Lactate (Haldol) 1 mg IVPUSH ONETIME ONE Stop: 04/25/18 14:07 Last Admin: 04/25/18 19:48 Dose: Not Given Hydromorphone HCl (Dilaudid) 0.5 mg IVPUSH ONETIME ONE Stop: 04/25/18 07:10 Last Admin: 04/25/18 07:34 Dose: 0.5 mg Hydromorphone HCl (Dilaudid) Confirm Administered Dose 0.5 mg .ROUTE .STK-MED ONE Stop: 04/25/18 12:53 Hydromorphone HCl (Dilaudid) 0.5 mg IVPUSH ASDIRECTED PRN PRN Reason: PAIN Hydromorphone HCl (Dilaudid) Confirm Administered Dose 0.5 mg .ROUTE .STK-MED ONE Stop: 04/25/18 14:05 Sodium Chloride (Normal Saline) 1,000 mls @ 999 mls/hr IV ONETIME [facility] Last Admin: 04/25/18 07:33 Dose: 999 mls/hr Piperacillin Sod/Tazobactam (Sod 4.5 gm/ Sodium Chloride) 100 mls @ 200 mls/hr IV ONETIME ONE Stop: 04/25/18 08:35 Last Admin: 04/25/18 08:17 Dose: 200 mls/hr Sodium Chloride (Normal Saline) 1,000 mls @ 75 mls/hr IV ASDIRECTED [facility] Last Admin: 04/25/18 08:33 Dose: 75 mls/hr Sodium Chloride (Normal Saline) 1,000 mls @ 125 mls/hr IV ASDIRECTED [facility] Lactated Ringer's (Ringers, Lactated) Confirm Administered Dose 2,000 mls @ as directed .ROUTE .STK-MED ONE Stop: 04/25/18 12:11 Lidocaine HCl (Xylocaine-Mpf 1%) Confirm Administered Dose 4 mls @ as directed .ROUTE .STK-MED ONE Stop: 04/25/18 12:12 Ketamine HCl (Ketalar) Confirm Administered Dose 500 mg .ROUTE .STK-MED ONE Stop: 04/25/18 13:14 Ketorolac Tromethamine (Toradol) Confirm Administered Dose 30 mg .ROUTE .STK- MED ONE Stop: 04/25/18 14:41 Lidocaine/Epinephrine (Xylocaine 1% With Epinephrine 1:100,000) Confirm Administered Dose 20 ml .ROUTE .STK-MED ONE Stop: 04/25/18 12:09 Last Admin: 04/25/18 12:53 Dose: 9 ml Meperidine HCl (Demerol) 12.5 mg IVPUSH ONETIME PRN PRN Reason: Shivering Midazolam HCl (Versed 1 Mg/Ml) Confirm Administered Dose 2 mg .ROUTE .STK-MED ONE Stop: 04/25/18 12:12 Ondansetron HCl (Zofran) 4 mg IVPUSH ONETIME ONE Stop: 04/25/18 07:10 Last Admin: 04/25/18 07:33 Dose: 4 mg Ondansetron HCl (Zofran) Confirm Administered Dose 4 mg .ROUTE .STK-MED ONE Stop: 04/25/18 12:11 Propofol (Diprivan 20 Ml) Confirm Administered Dose 400 mg .ROUTE .STK-MED ONE Stop: 04/25/18 12:11 Propofol (Diprivan 20 Ml) Confirm Administered Dose 200 mg .ROUTE .STK-MED ONE Stop: 04/25/18 13:20 Rocuronium [place] (Zemuron) Confirm Administered Dose 50 mg .ROUTE .STK-MED ONE Stop: 04/25/18 12:11 Succinylcholine Chloride (Succinylcholine In Ns Pf) Confirm Administered Dose 100 mg .ROUTE .STK-MED ONE Stop: 04/25/18 12:11 - Exam Wound/Incisions: Dressing Dry and Intact GI/Abdominal Exam: Tender, Other (SAMANTA drain has serosanguineous fluid) - Problem List & Annotations (1) Acute cholecystitis SNOMED Code(s): 00589979 Code(s): K81.0 - ACUTE CHOLECYSTITIS Status: Acute Priority: Medium Current Visit: Yes (2) UTI (urinary tract infection) SNOMED Code(s): 80402417 Code(s): N39.0 - URINARY TRACT INFECTION, SITE NOT SPECIFIED Status: Acute Priority: Low Current Visit: Yes Qualifiers: Urinary tract infection type: site unspecified Hematuria presence: without hematuria Qualified Code(s): N39.0 - Urinary tract infection, site not specified - Problem List Review Problem List Initiated/Reviewed/Updated: Yes - My Orders Last 24 Hours: Active Orders 24 hr Category Date Time Status Patient Status [ADT] Routine ADT 04/25/18 15:36 Active Drain Management [RC] QSHIFT Care 04/25/18 15:38 Active Notify Provider [RC] ASDIRECTED Care 04/25/18 14:06 Active Oxygen Therapy [RC] PRN Care 04/25/18 15:36 Active Vital Signs [RC] Q4HR Care 04/25/18 15:36 Active Clear Liquid Diet [DIET] Diet 04/25/18 Dinner Active CULTURE URINE [RM] Stat Lab 04/25/18 07:13 Results HCG QUALITATIVE,URINE [URCHEM] Stat Lab 04/25/18 07:13 Ordered UA W/MICROSCOPIC [URIN] Stat Lab 04/25/18 07:13 Ordered Acetaminophen/HYDROcodone [[place] 325-5 MG] Med 04/25/18 15:36 Active 1 tab PO Q4H PRN Levothyroxine [Synthroid] Med 04/26/18 06:00 Active 50 mcg PO ACBREAKFAST Ondansetron [Zofran] Med 04/25/18 15:36 Active 4 mg IVPUSH Q6H PRN Potassium Chloride Med 04/26/18 07:50 Once 40 meq PO ONETIME ONE Sodium Chloride 0.9% [Normal Saline] 1,000 ml Med 04/25/18 15:45 Active IV ASDIRECTED Sodium Chloride 0.9% [Saline Flush] Med 04/25/18 07:09 Active 10 ml FLUSH ASDIRECTED PRN cefOXitin [Mefoxin in Dextrose,Iso-Osm 2 GM/50 ML] 2 gm Med 04/25/18 18:00 Active Premix Bag 1 bag IV Q6HR [id number] [Sublimaze] Med 04/25/18 15:36 Active 25 mcg IVPUSH Q1H PRN Abdominal Binder [OM.PC] Per Unit Routine Oth 04/25/18 15:37 Ordered Peripheral IV Insertion Adult [OM.PC] Stat Oth 04/25/18 07:09 Ordered Schedule Procedure [COMM] Routine Oth 04/25/18 11:48 Ordered Schedule Procedure [COMM] Stat Oth 04/25/18 12:30 Ordered Sequential Compression Device [OM.PC] Routine Oth 04/25/18 18:31 Ordered Resuscitation Status Routine Resus Stat 04/25/18 11:48 Ordered Medication Orders Hydrocodone Bitart/Acetaminophen ([place] 325-5 Mg) 1 tab PO Q4H PRN PRN Reason: Pain (moderate 4-6) Last Admin: 04/26/18 07:32 Dose: 1 tab Admin: 04/25/18 23:26 Dose: 1 tab Fentanyl (Sublimaze) 25 mcg IVPUSH Q1H PRN PRN Reason: Pain (severe 7-10) Stop: 04/26/18 15:39 Last Admin: 04/26/18 06:29 Dose: 25 mcg Admin: 04/26/18 03:07 Dose: 25 mcg Admin: 04/25/18 20:12 Dose: 25 mcg Sodium Chloride (Normal Saline) 1,000 mls @ 125 mls/hr IV ASDIRECTED [facility] Last Admin: 04/26/18 02:10 Dose: 125 mls/hr Infusion: 04/26/18 01:25 Dose: 125 mls/hr Admin: 04/25/18 17:25 Dose: 125 mls/hr Cefoxitin Sodium 2 gm/ Premix 50 mls @ 100 mls/hr IV Q6HR [facility] Last Admin: 04/26/18 06:33 Dose: 100 mls/hr Infusion: 04/25/18 23:53 Dose: 100 mls/hr Admin: 04/25/18 23:23 Dose: 100 mls/hr Infusion: 04/25/18 17:55 Dose: 100 mls/hr Admin: 04/25/18 17:25 Dose: 100 mls/hr Levothyroxine Sodium (Synthroid) 50 mcg PO ACBREAKFAST [facility] Last Admin: 04/26/18 06:32 Dose: 50 mcg Ondansetron HCl (Zofran) 4 mg IVPUSH Q6H PRN PRN Reason: Nausea/Vomiting Sodium Chloride (Saline Flush) 10 ml FLUSH ASDIRECTED PRN PRN Reason: Keep Vein Open Last Admin: 04/25/18 07:36 Dose: 10 ml - Assessment Assessment (Free Text/Narrative):: Stable. - Plan Plan (Free Text/Narrative):: Same. Potassium replacement.
[2018-04-26] MEDS ORDERED: Potassium Chloride 10% 20 MEQ/15 ML Soln 30 ML UD Cup PO ONE (07:55)
[2018-04-27] MEDS: Acetaminophen/HYDROcodone 325-5 MG Tab PO PRN ×5 (01:05→18:59)
[2018-04-27] MEDS: Sodium Chloride 0.9% 1,000 ML IV SCH (04:44)
[2018-04-27] MEDS: cefOXitin 2 GM in Premix Bag 1 BAG IV SCH ×4 (04:59→23:27)
[2018-04-27] MEDS: Levothyroxine 50 MCG Tab PO SCH (05:45)
[2018-04-27] MEDS ORDERED: Sodium Chloride 0.9% 10 ML Syringe FLUSH PRN (07:51)
--- NOTE | 2018-04-27 07:53 | PCM.SURGPN ---
- General Info Date of Service: 04/27/18 Functional Status: Reports: Pain Controlled, Tolerating Diet, Ambulating, Urinating, Other (Patient wants to go home) - Review of Systems Gastrointestinal: Reports: Flatus, Other (Drainage is serous and no bile.) - Patient Data Vitals - Most Recent: Last Vital Signs Temp 37.6 C 04/27/18 04:42 Pulse 87 04/27/18 04:42 Resp 18 04/27/18 04:42 BP 115/81 04/27/18 04:42 Pulse Ox 93 L 04/27/18 04:42 Weight - Most Recent: 97.114 kg I&O - Last 24 Hours: Intake & Output 04/26/18 04/27/18 04/27/18 22:59 06:59 14:59 Intake Total 2050 1728 Output Total 555 590 Balance 1495 1138 Med Orders - Current: Current Medications Hydrocodone Bitart/Acetaminophen ([place] 325-5 Mg) 1 tab PO Q4H PRN PRN Reason: Pain (moderate 4-6) Last Admin: 04/27/18 05:45 Dose: 1 tab Sodium Chloride (Normal Saline) 1,000 mls @ 125 mls/hr IV ASDIRECTED [facility] Last Admin: 04/27/18 04:44 Dose: 125 mls/hr Cefoxitin Sodium 2 gm/ Premix 50 mls @ 100 mls/hr IV Q6HR [facility] Last Admin: 04/27/18 04:59 Dose: 100 mls/hr Levothyroxine Sodium (Synthroid) 50 mcg PO ACBREAKFAST [facility] Last Admin: 04/27/18 05:45 Dose: 50 mcg Ondansetron HCl (Zofran) 4 mg IVPUSH Q6H PRN PRN Reason: Nausea/Vomiting Sodium Chloride (Saline Flush) 10 ml FLUSH ASDIRECTED PRN PRN Reason: Keep Vein Open Last Admin: 04/25/18 07:36 Dose: 10 ml Discontinued Medications Albuterol (Proventil Hfa) Confirm Administered Dose 6.7 gm INH .STK-MED ONE Stop: 04/25/18 13:55 Bupivacaine HCl/Epinephrine Bitart (Marcaine 0.5%/Epinephrine 1:200,000) Confirm Administered Dose 50 ml .ROUTE .STK-MED ONE Stop: 04/25/18 12:09 Last Admin: 04/25/18 12:53 Dose: 9 ml Dexamethasone (Dexamethasone) Confirm Administered Dose 20 mg .ROUTE .STK-MED ONE Stop: 04/25/18 12:12 Diphenhydramine HCl (Benadryl) 25 mg IVPUSH Q6H PRN PRN Reason: Pruritis Famotidine (Pepcid) 20 mg IVPUSH ONETIME ONE Stop: 04/25/18 07:10 Last Admin: 04/25/18 07:33 Dose: 20 mg Fentanyl (Sublimaze) Confirm Administered Dose 250 mcg .ROUTE .STK-MED ONE Stop: 04/25/18 12:12 Fentanyl (Sublimaze) 50 mcg IVPUSH Q5M PRN PRN Reason: Pain Fentanyl (Sublimaze) 25 mcg IVPUSH Q1H PRN PRN Reason: Pain (severe 7-10) Stop: 04/26/18 15:39 Last Admin: 04/26/18 13:12 Dose: 25 mcg Haloperidol Lactate (Haldol) 1 mg IVPUSH ONETIME ONE Stop: 04/25/18 14:07 Last Admin: 04/25/18 19:48 Dose: Not Given Hydromorphone HCl (Dilaudid) 0.5 mg IVPUSH ONETIME ONE Stop: 04/25/18 07:10 Last Admin: 04/25/18 07:34 Dose: 0.5 mg Hydromorphone HCl (Dilaudid) Confirm Administered Dose 0.5 mg .ROUTE .STK-MED ONE Stop: 04/25/18 12:53 Hydromorphone HCl (Dilaudid) 0.5 mg IVPUSH ASDIRECTED PRN PRN Reason: PAIN Hydromorphone HCl (Dilaudid) Confirm Administered Dose 0.5 mg .ROUTE .STK-MED ONE Stop: 04/25/18 14:05 Sodium Chloride (Normal Saline) 1,000 mls @ 999 mls/hr IV ONETIME [facility] Last Admin: 04/25/18 07:33 Dose: 999 mls/hr Piperacillin Sod/Tazobactam (Sod 4.5 gm/ Sodium Chloride) 100 mls @ 200 mls/hr IV ONETIME ONE Stop: 04/25/18 08:35 Last Admin: 04/25/18 08:17 Dose: 200 mls/hr Sodium Chloride (Normal Saline) 1,000 mls @ 75 mls/hr IV ASDIRECTED [facility] Last Admin: 04/25/18 08:33 Dose: 75 mls/hr Sodium Chloride (Normal Saline) 1,000 mls @ 125 mls/hr IV ASDIRECTED [facility] Lactated Ringer's (Ringers, Lactated) Confirm Administered Dose 2,000 mls @ as directed .ROUTE .STK-MED ONE Stop: 04/25/18 12:11 Lidocaine HCl (Xylocaine-Mpf 1%) Confirm Administered Dose 4 mls @ as directed .ROUTE .STK-MED ONE Stop: 04/25/18 12:12 Ketamine HCl (Ketalar) Confirm Administered Dose 500 mg .ROUTE .STK-MED ONE Stop: 04/25/18 13:14 Ketorolac Tromethamine (Toradol) Confirm Administered Dose 30 mg .ROUTE .STK- MED ONE Stop: 04/25/18 14:41 Lidocaine/Epinephrine (Xylocaine 1% With Epinephrine 1:100,000) Confirm Administered Dose 20 ml .ROUTE .STK-MED ONE Stop: 04/25/18 12:09 Last Admin: 04/25/18 12:53 Dose: 9 ml Meperidine HCl (Demerol) 12.5 mg IVPUSH ONETIME PRN PRN Reason: Shivering Midazolam HCl (Versed 1 Mg/Ml) Confirm Administered Dose 2 mg .ROUTE .STK-MED ONE Stop: 04/25/18 12:12 Ondansetron HCl (Zofran) 4 mg IVPUSH ONETIME ONE Stop: 04/25/18 07:10 Last Admin: 04/25/18 07:33 Dose: 4 mg Ondansetron HCl (Zofran) Confirm Administered Dose 4 mg .ROUTE .STK-MED ONE Stop: 04/25/18 12:11 Potassium Chloride (Potassium Chloride) 40 meq PO ONETIME ONE Stop: 04/26/18 07:56 Last Admin: 04/26/18 09:30 Dose: 40 meq Propofol (Diprivan 20 Ml) Confirm Administered Dose 400 mg .ROUTE .STK-MED ONE Stop: 04/25/18 12:11 Propofol (Diprivan 20 Ml) Confirm Administered Dose 200 mg .ROUTE .STK-MED ONE Stop: 04/25/18 13:20 Rocuronium [place] (Zemuron) Confirm Administered Dose 50 mg .ROUTE .STK-MED ONE Stop: 04/25/18 12:11 Succinylcholine Chloride (Succinylcholine In Ns Pf) Confirm Administered Dose 100 mg .ROUTE .STK-MED ONE Stop: 04/25/18 12:11 - Problem List & Annotations (1) Acute cholecystitis SNOMED Code(s): 90552155 Code(s): K81.0 - ACUTE CHOLECYSTITIS Status: Acute Priority: Medium Current Visit: Yes (2) UTI (urinary tract infection) SNOMED Code(s): 79138954 Code(s): N39.0 - URINARY TRACT INFECTION, SITE NOT SPECIFIED Status: Acute Priority: Low Current Visit: Yes Qualifiers: Urinary tract infection type: site unspecified Hematuria presence: without hematuria Qualified Code(s): N39.0 - Urinary tract infection, site not specified - Problem List Review Problem List Initiated/Reviewed/Updated: Yes - My Orders Last 24 Hours: Active Orders 24 hr Category Date Time Status May Shower [RC] ASDIRECTED Care 04/27/18 07:50 Ordered Low Fat Diet [DIET] Diet 04/27/18 Lunch Ordered Sodium Chloride 0.9% [Saline Flush] Med 04/27/18 07:51 Ordered 10 ml FLUSH ASDIRECTED PRN Assess Discharge Needs [OM.PC] Routine Oth 04/27/18 07:51 Ordered Convert IV to Peripheral Lock [Convert IV to Saline Oth 04/27/18 07:51 Ordered Lock] [OM.PC] Routine Medication Orders Hydrocodone Bitart/Acetaminophen ([place] 325-5 Mg) 1 tab PO Q4H PRN PRN Reason: Pain (moderate 4-6) Last Admin: 04/27/18 05:45 Dose: 1 tab Admin: 04/27/18 01:05 Dose: 1 tab Admin: 04/26/18 20:39 Dose: 1 tab Admin: 04/26/18 16:26 Dose: 1 tab Admin: 04/26/18 11:42 Dose: 1 tab Admin: 04/26/18 07:32 Dose: 1 tab Admin: 04/25/18 23:26 Dose: 1 tab Sodium Chloride (Normal Saline) 1,000 mls @ 125 mls/hr IV ASDIRECTED [facility] Last Admin: 04/27/18 04:44 Dose: 125 mls/hr Infusion: 04/27/18 04:41 Dose: 125 mls/hr Admin: 04/26/18 20:41 Dose: 125 mls/hr Infusion: 04/26/18 20:41 Dose: 125 mls/hr Admin: 04/26/18 12:42 Dose: 125 mls/hr Infusion: 04/26/18 10:10 Dose: 125 mls/hr Admin: 04/26/18 02:10 Dose: 125 mls/hr Infusion: 04/26/18 01:25 Dose: 125 mls/hr Admin: 04/25/18 17:25 Dose: 125 mls/hr Cefoxitin Sodium 2 gm/ Premix 50 mls @ 100 mls/hr IV Q6HR [facility] Last Admin: 04/27/18 04:59 Dose: 100 mls/hr Infusion: 04/26/18 23:31 Dose: 100 mls/hr Admin: 04/26/18 23:01 Dose: 100 mls/hr Infusion: 04/26/18 18:45 Dose: 100 mls/hr Admin: 04/26/18 18:15 Dose: 100 mls/hr Infusion: 04/26/18 12:12 Dose: 100 mls/hr Admin: 04/26/18 11:42 Dose: 100 mls/hr Infusion: 04/26/18 07:03 Dose: 100 mls/hr Admin: 04/26/18 06:33 Dose: 100 mls/hr Infusion: 04/25/18 23:53 Dose: 100 mls/hr Admin: 04/25/18 23:23 Dose: 100 mls/hr Infusion: 04/25/18 17:55 Dose: 100 mls/hr Admin: 04/25/18 17:25 Dose: 100 mls/hr Levothyroxine Sodium (Synthroid) 50 mcg PO ACBREAKFAST [facility] Last Admin: 04/27/18 05:45 Dose: 50 mcg Admin: 04/26/18 06:32 Dose: 50 mcg Ondansetron HCl (Zofran) 4 mg IVPUSH Q6H PRN PRN Reason: Nausea/Vomiting Sodium Chloride (Saline Flush) 10 ml FLUSH ASDIRECTED PRN PRN Reason: Keep Vein Open Last Admin: 04/25/18 07:36 Dose: 10 ml - Assessment Assessment (Free Text/Narrative):: Doing well. - Plan Plan (Free Text/Narrative):: Labs today advance diet today and plan discharge for tomorrow.
[2018-04-27] MEDS ORDERED: Acetaminophen 325 MG Tab PO PRN (17:43)
[2018-04-28] MEDS ORDERED: Magnesium Hydroxide 400 MG/5 ML Susp 30 ML Cup PO PRN (00:32)
[2018-04-28] MEDS: Levothyroxine 50 MCG Tab PO SCH (06:39)
[2018-04-28] MEDS: cefOXitin 2 GM in Premix Bag 1 BAG IV SCH ×2 (06:39→11:54)
--- NOTE | 2018-04-28 08:47 | PCM.SURGPN ---
- General Info Date of Service: 04/28/18 Functional Status: Reports: Pain Controlled, Tolerating Diet, Ambulating, Urinating - Review of Systems Gastrointestinal: Reports: Other (Complains of GP site drain discomfort. She can appreciate the absence of the gallbladder and is pleased.) - Patient Data Vitals - Most Recent: Last Vital Signs Temp 37.2 C 04/28/18 04:07 Pulse 79 04/28/18 04:07 Resp 18 04/27/18 23:59 BP 116/60 04/28/18 04:07 Pulse Ox 96 04/28/18 04:07 Weight - Most Recent: 95.209 kg I&O - Last 24 Hours: Intake & Output 04/27/18 04/28/18 04/28/18 22:59 06:59 14:59 Intake Total 1206 450 Output Total 870 1575 Balance 336 -1125 Lab Results Last 24 Hrs: Laboratory Results - last 24 hr 04/27/18 04/27/18 Range/Units 08:54 08:54 WBC 13.68 H (3.98-10.04) K/mm3 RBC 3.09 L (3.98-5.22) M/mm3 Hgb 9.2 L (11.2-15.7) gm/L Hct 28.4 L (34.1-44.9) % MCV 91.9 (79.4-94.8) fl MCH 29.8 (25.6-32.2) pg MCHC 32.4 (32.2-35.5) g/dl RDW Std Deviation 41.6 (36.4-46.3) fL Plt Count 362 (182-369) K/mm3 MPV 8.7 L (9.4-12.3) fl Neut % (Auto) 79.1 H (34.0-71.1) % Lymph % (Auto) 15.4 L (19.3-51.7) % [place] % (Auto) 5.1 (4.7-12.5) % Eos % (Auto) 0.1 L (0.7-5.8) Baso % (Auto) 0.1 (0.1-1.2) % Neut # (Auto) 10.83 H (1.56-6.13) K/mm3 Lymph # (Auto) 2.10 (1.18-3.74) K/mm3 [place] # (Auto) 0.70 H (0.24-0.36) K/mm3 Eos # (Auto) 0.01 L (0.04-0.36) K/mm3 Baso # (Auto) 0.01 (0.01-0.08) K/mm3 Sodium 137 (136-145) mEq/L Potassium 3.6 (3.5-5.1) mEq/L Chloride 106 (98-107) mEq/L Carbon Dioxide 24 (21-32) mEq/L Anion Gap 10.6 (5-15) BUN 16 (7-18) mg/dL Creatinine 0.6 (0.55-1.02) mg/dL Est Cr Clr Drug Dosing 118.88 mL/min Estimated GFR (MDRD) > 60 (>60) mL/min BUN/Creatinine Ratio 26.7 H (14-18) Glucose 97 (74-106) mg/dL Calcium 8.0 L (8.5-10.1) mg/dL Total Bilirubin 0.7 (0.2-1.0) mg/dL Direct Bilirubin 0.30 H (0.0-0.2) mg/dl Indirect Bilirubin 0.40 AST 31 (15-37) U/L ALT 115 H (14-59) U/L Alkaline Phosphatase 94 (46-116) U/L Total Protein 6.1 L (6.4-8.2) g/dl Albumin 2.4 L (3.4-5.0) g/dl Globulin 3.7 gm/dL Albumin/Globulin Ratio 0.7 L (1-2) Med Orders - Current: Current Medications Acetaminophen (Tylenol) 650 mg PO Q4H PRN PRN Reason: Pain Last Admin: 04/28/18 01:18 Dose: 650 mg Hydrocodone Bitart/Acetaminophen ([place] 325-5 Mg) 1 tab PO Q4H PRN PRN Reason: Pain (moderate 4-6) Last Admin: 04/27/18 18:59 Dose: 1 tab Cefoxitin Sodium 2 gm/ Premix 50 mls @ 100 mls/hr IV Q6HR [facility] Last Admin: 04/28/18 06:39 Dose: 100 mls/hr Levothyroxine Sodium (Synthroid) 50 mcg PO ACBREAKFAST [facility] Last Admin: 04/28/18 06:39 Dose: 50 mcg Magnesium Hydroxide (Milk Of Magnesia) 30 ml PO DAILY PRN PRN Reason: Constipation Ondansetron HCl (Zofran) 4 mg IVPUSH Q6H PRN PRN Reason: Nausea/Vomiting Sodium Chloride (Saline Flush) 10 ml FLUSH ASDIRECTED PRN PRN Reason: Keep Vein Open Last Admin: 04/25/18 07:36 Dose: 10 ml Sodium Chloride (Saline Flush) 10 ml FLUSH ASDIRECTED PRN PRN Reason: Keep Vein Open Discontinued Medications Albuterol (Proventil Hfa) Confirm Administered Dose 6.7 gm INH .STK-MED ONE Stop: 04/25/18 13:55 Bupivacaine HCl/Epinephrine Bitart ([place] 0.5%/Epinephrine 1:200,000) Confirm Administered Dose 50 ml .ROUTE .STK-MED ONE Stop: 04/25/18 12:09 Last Admin: 04/25/18 12:53 Dose: 9 ml Dexamethasone (Dexamethasone) Confirm Administered Dose 20 mg .ROUTE .STK-MED ONE Stop: 04/25/18 12:12 Diphenhydramine HCl (Benadryl) 25 mg IVPUSH Q6H PRN PRN Reason: Pruritis Famotidine (Pepcid) 20 mg IVPUSH ONETIME ONE Stop: 04/25/18 07:10 Last Admin: 04/25/18 07:33 Dose: 20 mg Fentanyl (Sublimaze) Confirm Administered Dose 250 mcg .ROUTE .STK-MED ONE Stop: 04/25/18 12:12 Fentanyl (Sublimaze) 50 mcg IVPUSH Q5M PRN PRN Reason: Pain Fentanyl (Sublimaze) 25 mcg IVPUSH Q1H PRN PRN Reason: Pain (severe 7-10) Stop: 04/26/18 15:39 Last Admin: 04/26/18 13:12 Dose: 25 mcg Haloperidol Lactate (Haldol) 1 mg IVPUSH ONETIME ONE Stop: 04/25/18 14:07 Last Admin: 04/25/18 19:48 Dose: Not Given Hydromorphone HCl (Dilaudid) 0.5 mg IVPUSH ONETIME ONE Stop: 04/25/18 07:10 Last Admin: 04/25/18 07:34 Dose: 0.5 mg Hydromorphone HCl (Dilaudid) Confirm Administered Dose 0.5 mg .ROUTE .STK-MED ONE Stop: 04/25/18 12:53 Hydromorphone HCl (Dilaudid) 0.5 mg IVPUSH ASDIRECTED PRN PRN Reason: PAIN Hydromorphone HCl (Dilaudid) Confirm Administered Dose 0.5 mg .ROUTE .STK-MED ONE Stop: 04/25/18 14:05 Sodium Chloride (Normal Saline) 1,000 mls @ 999 mls/hr IV ONETIME [facility] Last Admin: 04/25/18 07:33 Dose: 999 mls/hr Piperacillin Sod/Tazobactam (Sod 4.5 gm/ Sodium Chloride) 100 mls @ 200 mls/hr IV ONETIME ONE Stop: 04/25/18 08:35 Last Admin: 04/25/18 08:17 Dose: 200 mls/hr Sodium Chloride (Normal Saline) 1,000 mls @ 75 mls/hr IV ASDIRECTED [facility] Last Admin: 04/25/18 08:33 Dose: 75 mls/hr Sodium Chloride (Normal Saline) 1,000 mls @ 125 mls/hr IV ASDIRECTED [facility] Lactated Ringer's (Ringers, Lactated) Confirm Administered Dose 2,000 mls @ as directed .ROUTE .[facility]-MED ONE Stop: 04/25/18 12:11 Lidocaine HCl (Xylocaine-Mpf 1%) Confirm Administered Dose 4 mls @ as directed .ROUTE .ST-MED ONE Stop: 04/25/18 12:12 Sodium Chloride (Normal Saline) 1,000 mls @ 125 mls/hr IV ASDIRECTED [facility] Last Admin: 04/27/18 04:44 Dose: 125 mls/hr Ketamine HCl (Ketalar) Confirm Administered Dose 500 mg .ROUTE .ST-MED ONE Stop: 04/25/18 13:14 Ketorolac Tromethamine (Toradol) Confirm Administered Dose 30 mg .ROUTE .ST- MED ONE Stop: 04/25/18 14:41 Lidocaine/Epinephrine (Xylocaine 1% With Epinephrine 1:100,000) Confirm Administered Dose 20 ml .ROUTE .STK-MED ONE Stop: 04/25/18 12:09 Last Admin: 04/25/18 12:53 Dose: 9 ml Meperidine HCl (Demerol) 12.5 mg IVPUSH ONETIME PRN PRN Reason: Shivering Midazolam HCl (Versed 1 Mg/Ml) Confirm Administered Dose 2 mg .ROUTE .STK-MED ONE Stop: 04/25/18 12:12 Ondansetron HCl (Zofran) 4 mg IVPUSH ONETIME ONE Stop: 04/25/18 07:10 Last Admin: 04/25/18 07:33 Dose: 4 mg Ondansetron HCl (Zofran) Confirm Administered Dose 4 mg .ROUTE .STK-MED ONE Stop: 04/25/18 12:11 Potassium Chloride (Potassium Chloride) 40 meq PO ONETIME ONE Stop: 04/26/18 07:56 Last Admin: 04/26/18 09:30 Dose: 40 meq Propofol (Diprivan 20 Ml) Confirm Administered Dose 400 mg .ROUTE .STK-MED ONE Stop: 04/25/18 12:11 Propofol (Diprivan 20 Ml) Confirm Administered Dose 200 mg .ROUTE .STK-MED ONE Stop: 04/25/18 13:20 Rocuronium [place] (Zemuron) Confirm Administered Dose 50 mg .ROUTE .STK-MED ONE Stop: 04/25/18 12:11 Succinylcholine Chloride (Succinylcholine In Ns Pf) Confirm Administered Dose 100 mg .ROUTE .STK-MED ONE Stop: 04/25/18 12:11 - Problem List & Annotations (1) Acute cholecystitis SNOMED Code(s): 02944220 Code(s): K81.0 - ACUTE CHOLECYSTITIS Status: Acute Priority: Medium Current Visit: Yes (2) UTI (urinary tract infection) SNOMED Code(s): 65463313 Code(s): N39.0 - URINARY TRACT INFECTION, SITE NOT SPECIFIED Status: Acute Priority: Low Current Visit: Yes Qualifiers: Urinary tract infection type: site unspecified Hematuria presence: without hematuria Qualified Code(s): N39.0 - Urinary tract infection, site not specified - Problem List Review Problem List Initiated/Reviewed/Updated: Yes - My Orders Last 24 Hours: Active Orders 24 hr Category Date Time Status May Shower [RC] ASDIRECTED Care 04/27/18 07:50 Active Ready for Discharge [RC] PER UNIT ROUTINE Care 04/28/18 08:44 Ordered Low Fat Diet [DIET] Diet 04/27/18 Lunch Active Acetaminophen [Tylenol] Med 04/27/18 17:43 Active 650 mg PO Q4H PRN Magnesium Hydroxide [Milk of Magnesia] Med 04/28/18 00:32 Active 30 ml PO DAILY PRN Sodium Chloride 0.9% [Saline Flush] Med 04/27/18 07:51 Active 10 ml FLUSH ASDIRECTED PRN Assess Discharge Needs [OM.PC] Routine Oth 04/27/18 07:51 Ordered Convert IV to Peripheral Lock [Convert IV to Saline Oth 04/27/18 07:51 Ordered Lock] [OM.PC] Routine Medication Orders Acetaminophen (Tylenol) 650 mg PO Q4H PRN PRN Reason: Pain Last Admin: 04/28/18 01:18 Dose: 650 mg Hydrocodone Bitart/Acetaminophen ([place] 325-5 Mg) 1 tab PO Q4H PRN PRN Reason: Pain (moderate 4-6) Last Admin: 04/27/18 18:59 Dose: 1 tab Admin: 04/27/18 15:04 Dose: 1 tab Admin: 04/27/18 09:43 Dose: 1 tab Admin: 04/27/18 05:45 Dose: 1 tab Admin: 04/27/18 01:05 Dose: 1 tab Admin: 04/26/18 20:39 Dose: 1 tab Admin: 04/26/18 16:26 Dose: 1 tab Admin: 04/26/18 11:42 Dose: 1 tab Admin: 04/26/18 07:32 Dose: 1 tab Admin: 04/25/18 23:26 Dose: 1 tab Cefoxitin Sodium 2 gm/ Premix 50 mls @ 100 mls/hr IV Q6HR [facility] Last Admin: 04/28/18 06:39 Dose: 100 mls/hr Infusion: 04/27/18 23:57 Dose: 100 mls/hr Admin: 04/27/18 23:27 Dose: 100 mls/hr Infusion: 04/27/18 19:21 Dose: 100 mls/hr Admin: 04/27/18 18:51 Dose: 100 mls/hr Infusion: 04/27/18 11:53 Dose: 100 mls/hr Admin: 04/27/18 11:23 Dose: 100 mls/hr Infusion: 04/27/18 05:29 Dose: 100 mls/hr Admin: 04/27/18 04:59 Dose: 100 mls/hr Infusion: 04/26/18 23:31 Dose: 100 mls/hr Admin: 04/26/18 23:01 Dose: 100 mls/hr Infusion: 04/26/18 18:45 Dose: 100 mls/hr Admin: 04/26/18 18:15 Dose: 100 mls/hr Infusion: 04/26/18 12:12 Dose: 100 mls/hr Admin: 04/26/18 11:42 Dose: 100 mls/hr Infusion: 04/26/18 07:03 Dose: 100 mls/hr Admin: 04/26/18 06:33 Dose: 100 mls/hr Infusion: 04/25/18 23:53 Dose: 100 mls/hr Admin: 04/25/18 23:23 Dose: 100 mls/hr Infusion: 04/25/18 17:55 Dose: 100 mls/hr Admin: 04/25/18 17:25 Dose: 100 mls/hr Levothyroxine Sodium (Synthroid) 50 mcg PO ACBREAKFAST [facility] Last Admin: 04/28/18 06:39 Dose: 50 mcg Admin: 04/27/18 05:45 Dose: 50 mcg Admin: 04/26/18 06:32 Dose: 50 mcg Magnesium Hydroxide (Milk Of Magnesia) 30 ml PO DAILY PRN PRN Reason: Constipation Ondansetron HCl (Zofran) 4 mg IVPUSH Q6H PRN PRN Reason: Nausea/Vomiting Sodium Chloride (Saline Flush) 10 ml FLUSH ASDIRECTED PRN PRN Reason: Keep Vein Open Last Admin: 04/25/18 07:36 Dose: 10 ml Sodium Chloride (Saline Flush) 10 ml FLUSH ASDIRECTED PRN PRN Reason: Keep Vein Open - Assessment Assessment (Free Text/Narrative):: Doing well. Okay for discharge but will remove SAMANTA drain before discharge. - Plan Plan (Free Text/Narrative):: Discharge today. Patient will follow-up with her primary care provider in [place]. She is leaving after 2 day stay in [facility]. I asked her to call my office for any questions or concerns.
--- NOTE | 2018-04-28 08:50 | PCM.DCSUM1 ---
Discharge Summary - Hospital Course Brief History: The patient was admitted to the inpatient service for IV antibiotics after a lengthy laparoscopic cholecystectomy in which multiple adhesions were found and because of this a SAMANTA drain was placed. The drain was managed as well. - Discharge Data Discharge Date: 04/28/18 Discharge Disposition: Home, Self-Care 01 Condition: Good - Discharge Diagnosis/Problem(s) (1) Acute cholecystitis SNOMED Code(s): 49805849 ICD Code: K81.0 - ACUTE CHOLECYSTITIS Status: Acute Priority: Medium Current Visit: Yes (2) UTI (urinary tract infection) SNOMED Code(s): 67702199 ICD Code: N39.0 - URINARY TRACT INFECTION, SITE NOT SPECIFIED Status: Acute Priority: Low Current Visit: Yes Qualifiers: Urinary tract infection type: site unspecified Hematuria presence: without hematuria Qualified Code(s): N39.0 - Urinary tract infection, site not specified - Patient Summary/Data Operative Procedure(s) Performed: Laparoscopic cholecystectomy with SAMANTA drain placement Complications: None Hospital Course: Uneventful. - Patient Instructions Diet, Other: Low-fat diet for 4-6 weeks Activity: As Tolerated Driving: May Drive Today Showering/Bathing: May Shower Wound/Incision Care: Keep Operative Site/Wound Site Clean and Dry Notify Provider of: Increased Pain (Follow with your primary care provider for increasing abdominal pain.) - Discharge Plan Home Medications: Home Meds Levothyroxine [Synthroid] 50 mcg PO DAILY 04/25/18 [History] Patient Handouts: Urinary Tract Infection, Adult, Cholecystitis, [id number] Referrals: PCP,None [Primary Care Provider] - - Discharge Summary/Plan Comment DC Time >30 min.: No Discharge Summary/Plan Comment: After drain removal patient will be discharged when her ride returns. I gave her postoperative instructions verbally. - Patient Data Vitals - Most Recent: Last Vital Signs Temp 37.2 C 04/28/18 04:07 Pulse 79 04/28/18 04:07 Resp 18 04/27/18 23:59 BP 116/60 04/28/18 04:07 Pulse Ox 96 04/28/18 04:07 Weight - Most Recent: 95.209 kg I&O - Last 24 hours: Intake & Output 04/27/18 04/28/18 04/28/18 22:59 06:59 14:59 Intake Total 1206 450 Output Total 409 3749 Balance 336 -1125 Lab Results - Last 24 hrs: Laboratory Results - last 24 hr 04/27/18 04/27/18 Range/Units 08:54 08:54 WBC 13.68 H (3.98-10.04) K/mm3 RBC 3.09 L (3.98-5.22) M/mm3 Hgb 9.2 L (11.2-15.7) gm/L Hct 28.4 L (34.1-44.9) % MCV 91.9 (79.4-94.8) fl MCH 29.8 (25.6-32.2) pg MCHC 32.4 (32.2-35.5) g/dl RDW Std Deviation 41.6 (36.4-46.3) fL Plt Count 362 (182-369) K/mm3 MPV 8.7 L (9.4-12.3) fl Neut % (Auto) 79.1 H (34.0-71.1) % Lymph % (Auto) 15.4 L (19.3-51.7) % [place] % (Auto) 5.1 (4.7-12.5) % Eos % (Auto) 0.1 L (0.7-5.8) Baso % (Auto) 0.1 (0.1-1.2) % Neut # (Auto) 10.83 H (1.56-6.13) K/mm3 Lymph # (Auto) 2.10 (1.18-3.74) K/mm3 [place] # (Auto) 0.70 H (0.24-0.36) K/mm3 Eos # (Auto) 0.01 L (0.04-0.36) K/mm3 Baso # (Auto) 0.01 (0.01-0.08) K/mm3 Sodium 137 (136-145) mEq/L Potassium 3.6 (3.5-5.1) mEq/L Chloride 106 (98-107) mEq/L Carbon Dioxide 24 (21-32) mEq/L Anion Gap 10.6 (5-15) BUN 16 (7-18) mg/dL Creatinine 0.6 (0.55-1.02) mg/dL Est Cr Clr Drug Dosing 118.88 mL/min Estimated GFR (MDRD) > 60 (>60) mL/min BUN/Creatinine Ratio 26.7 H (14-18) Glucose 97 (74-106) mg/dL Calcium 8.0 L (8.5-10.1) mg/dL Total Bilirubin 0.7 (0.2-1.0) mg/dL Direct Bilirubin 0.30 H (0.0-0.2) mg/dl Indirect Bilirubin 0.40 AST 31 (15-37) U/L ALT 115 H (14-59) U/L Alkaline Phosphatase 94 (46-116) U/L Total Protein 6.1 L (6.4-8.2) g/dl Albumin 2.4 L (3.4-5.0) g/dl Globulin 3.7 gm/dL Albumin/Globulin Ratio 0.7 L (1-2) Med Orders - Current: Current Medications Acetaminophen (Tylenol) 650 mg PO Q4H PRN PRN Reason: Pain Last Admin: 04/28/18 01:18 Dose: 650 mg Hydrocodone Bitart/Acetaminophen ([place] 325-5 Mg) 1 tab PO Q4H PRN PRN Reason: Pain (moderate 4-6) Last Admin: 04/27/18 18:59 Dose: 1 tab Cefoxitin Sodium 2 gm/ Premix 50 mls @ 100 mls/hr IV Q6HR [facility] Last Admin: 04/28/18 06:39 Dose: 100 mls/hr Levothyroxine Sodium (Synthroid) 50 mcg PO ACBREAKFAST [facility] Last Admin: 04/28/18 06:39 Dose: 50 mcg Magnesium Hydroxide (Milk Of Magnesia) 30 ml PO DAILY PRN PRN Reason: Constipation Ondansetron HCl (Zofran) 4 mg IVPUSH Q6H PRN PRN Reason: Nausea/Vomiting Sodium Chloride (Saline Flush) 10 ml FLUSH ASDIRECTED PRN PRN Reason: Keep Vein Open Last Admin: 04/25/18 07:36 Dose: 10 ml Sodium Chloride (Saline Flush) 10 ml FLUSH ASDIRECTED PRN PRN Reason: Keep Vein Open Discontinued Medications Albuterol (Proventil Hfa) Confirm Administered Dose 6.7 gm INH .STK-MED ONE Stop: 04/25/18 13:55 Bupivacaine HCl/Epinephrine Bitart ([place] 0.5%/Epinephrine 1:200,000) Confirm Administered Dose 50 ml .ROUTE .STK-MED ONE Stop: 04/25/18 12:09 Last Admin: 04/25/18 12:53 Dose: 9 ml Dexamethasone (Dexamethasone) Confirm Administered Dose 20 mg .ROUTE .STK-MED ONE Stop: 04/25/18 12:12 Diphenhydramine HCl (Benadryl) 25 mg IVPUSH Q6H PRN PRN Reason: Pruritis Famotidine (Pepcid) 20 mg IVPUSH ONETIME ONE Stop: 04/25/18 07:10 Last Admin: 04/25/18 07:33 Dose: 20 mg Fentanyl (Sublimaze) Confirm Administered Dose 250 mcg .ROUTE .STK-MED ONE Stop: 04/25/18 12:12 Fentanyl (Sublimaze) 50 mcg IVPUSH Q5M PRN PRN Reason: Pain Fentanyl (Sublimaze) 25 mcg IVPUSH Q1H PRN PRN Reason: Pain (severe 7-10) Stop: 04/26/18 15:39 Last Admin: 04/26/18 13:12 Dose: 25 mcg Haloperidol Lactate (Haldol) 1 mg IVPUSH ONETIME ONE Stop: 04/25/18 14:07 Last Admin: 04/25/18 19:48 Dose: Not Given Hydromorphone HCl (Dilaudid) 0.5 mg IVPUSH ONETIME ONE Stop: 04/25/18 07:10 Last Admin: 04/25/18 07:34 Dose: 0.5 mg Hydromorphone HCl (Dilaudid) Confirm Administered Dose 0.5 mg .ROUTE .STK-MED ONE Stop: 04/25/18 12:53 Hydromorphone HCl (Dilaudid) 0.5 mg IVPUSH ASDIRECTED PRN PRN Reason: PAIN Hydromorphone HCl (Dilaudid) Confirm Administered Dose 0.5 mg .ROUTE .STK-MED ONE Stop: 04/25/18 14:05 Sodium Chloride (Normal Saline) 1,000 mls @ 999 mls/hr IV ONETIME [facility] Last Admin: 04/25/18 07:33 Dose: 999 mls/hr Piperacillin Sod/Tazobactam (Sod 4.5 gm/ Sodium Chloride) 100 mls @ 200 mls/hr IV ONETIME ONE Stop: 04/25/18 08:35 Last Admin: 04/25/18 08:17 Dose: 200 mls/hr Sodium Chloride (Normal Saline) 1,000 mls @ 75 mls/hr IV ASDIRECTED [facility] Last Admin: 04/25/18 08:33 Dose: 75 mls/hr Sodium Chloride (Normal Saline) 1,000 mls @ 125 mls/hr IV ASDIRECTED [facility] Lactated Ringer's (Ringers, Lactated) Confirm Administered Dose 2,000 mls @ as directed .ROUTE .STK-MED ONE Stop: 04/25/18 12:11 Lidocaine HCl (Xylocaine-Mpf 1%) Confirm Administered Dose 4 mls @ as directed .ROUTE .STK-MED ONE Stop: 04/25/18 12:12 Sodium Chloride (Normal Saline) 1,000 mls @ 125 mls/hr IV ASDIRECTED [facility] Last Admin: 04/27/18 04:44 Dose: 125 mls/hr Ketamine HCl (Ketalar) Confirm Administered Dose 500 mg .ROUTE .STK-MED ONE Stop: 04/25/18 13:14 Ketorolac Tromethamine (Toradol) Confirm Administered Dose 30 mg .ROUTE .STK- MED ONE Stop: 04/25/18 14:41 Lidocaine/Epinephrine (Xylocaine 1% With Epinephrine 1:100,000) Confirm Administered Dose 20 ml .ROUTE .STK-MED ONE Stop: 04/25/18 12:09 Last Admin: 04/25/18 12:53 Dose: 9 ml Meperidine HCl (Demerol) 12.5 mg IVPUSH ONETIME PRN PRN Reason: Shivering Midazolam HCl (Versed 1 Mg/Ml) Confirm Administered Dose 2 mg .ROUTE .STK-MED ONE Stop: 04/25/18 12:12 Ondansetron HCl (Zofran) 4 mg IVPUSH ONETIME ONE Stop: 04/25/18 07:10 Last Admin: 04/25/18 07:33 Dose: 4 mg Ondansetron HCl (Zofran) Confirm Administered Dose 4 mg .ROUTE .STK-MED ONE Stop: 04/25/18 12:11 Potassium Chloride (Potassium Chloride) 40 meq PO ONETIME ONE Stop: 04/26/18 07:56 Last Admin: 04/26/18 09:30 Dose: 40 meq Propofol (Diprivan 20 Ml) Confirm Administered Dose 400 mg .ROUTE .STK-MED ONE Stop: 04/25/18 12:11 Propofol (Diprivan 20 Ml) Confirm Administered Dose 200 mg .ROUTE .STK-MED ONE Stop: 04/25/18 13:20 Rocuronium [place] (Zemuron) Confirm Administered Dose 50 mg .ROUTE .STK-MED ONE Stop: 04/25/18 12:11 Succinylcholine Chloride (Succinylcholine In Ns Pf) Confirm Administered Dose 100 mg .ROUTE .STK-MED ONE Stop: 04/25/18 12:11
[2018-04-28] MEDS: Acetaminophen/HYDROcodone 325-5 MG Tab PO PRN (12:05)
[2018-04-28] MEDS ORDERED: Pneumococcal Polyvalent-23 Vaccine 0.5 ML SDV IM ONE (12:23)
== END 2018-04-28 12:55 | disposition home or self-care (01) | DRG 418 ==
LOC: JD.ED 06:31 → JD.SDS 12:07 → JD.MS 15:36
PROVIDERS: ADMIT Surgery; ATTEND Surgery
PROC: 0DNW4ZZ Release Peritoneum, Percutaneous Endoscopic Approach (ICD-10-PCS; principal; 2018-04-25)
PROC: 0FT44ZZ Resection of Gallbladder, Percutaneous Endoscopic Approach (ICD-10-PCS; principal; 2018-04-25)
PROC: 3E0234Z Introduction of Serum, Toxoid and Vaccine into Muscle, Percutaneous Approach (ICD-10-PCS; 2018-04-28)
DX: K81.2 Acute cholecystitis with chronic cholecystitis (principal); N39.0 Urinary tract infection, site not specified; K66.0 Peritoneal adhesions (postprocedural) (postinfection); K21.9 Gastro-esophageal reflux disease without esophagitis; E07.9 Disorder of thyroid, unspecified; F17.200 Nicotine dependence, unspecified, uncomplicated; Z79.899 Other long term (current) drug therapy; Z98.891 History of uterine scar from previous surgery; Z96.89 Presence of other specified functional implants; Z23 Encounter for immunization
CPT/HCPCS: 00790; 36415; 76705; 76705-26; 80048; 80053; 80076; 81001; 81025; 82977; 85025; 87086; 87088; 90732; 96361; 96365; 96375; 99285; 99285-25; A9270-GY; G0009; J0330; J0694; J1100; J1170; J1885; J2001; J2250; J2405; J2543; J2704; J3010; J7030; J7040; J7050; J7120

== ENCOUNTER 2018-04-30 14:37 | Emergency (ER) | payer OTHER ==
[2018-04-30] MEDS ORDERED: HYDROmorphone 0.5 MG/0.5 ML SYRINGE IVPUSH ONE ×2 (15:09→18:07)
[2018-04-30] MEDS ORDERED: Ondansetron 4 MG/2 ML SDV IVPUSH ONE (15:09)
[2018-04-30] MEDS ORDERED: Sodium Chloride 0.9% 10 ML Syringe FLUSH PRN (15:09)
[2018-04-30] MEDS ORDERED: Sodium Chloride 0.9% 1,000 ML IV SCH (15:15)
--- NOTE | 2018-04-30 15:35 | EDM.PDOC ---
ED HPI GENERAL MEDICAL PROBLEM - General Chief Complaint: Abdominal Pain Stated Complaint: CANT EAT AND PAIN AFTER SURGERY Time Seen by Provider: 04/30/18 14:54 Source of Information: Reports: Patient, RN Notes Reviewed - History of Present Illness INITIAL COMMENTS - FREE TEXT/NARRATIVE: 32-year-old female had her gallbladder out 5 days ago laparoscopically. She was discharged home 2 days ago. Since going home she's been having a lot of continued abdominal discomfort. Pain is worse upper mid abdomen but generalized throughout the abdomen. At times she gets severe cramps. She states she was passing gas and did have a small BM while in the hospital but no yesterday and today has not "been passing gas". She states she has no appetite. She does get pain radiating to the left shoulder. No fever or chills. She feels that she may be constipated but also has not been eating much. Abdomen Pain Score (Numeric/FACES): 10 - Related Data Allergies Allergy/AdvReac Type Severity Reaction Status Date / Time No Known Allergies Allergy Verified 04/25/18 06:38 Home Meds: Home Meds Levothyroxine [Synthroid] 50 mcg PO DAILY 04/25/18 [History] Acetaminophen with Codeine [Tylenol with Codeine #3 Tablet] 1 - 2 each PO Q6HR PRN #24 tablet 04/28/18 [Rx] Sulfamethoxazole/Trimethoprim [Bactrim Ds Tablet] 1 each PO BID #10 tablet 04/28 [Rx] metroNIDAZOLE [Flagyl] 500 mg PO Q12H 5 Days tab 04/28/18 [Rx] Past Medical History - Past Health History Medical/Surgical History: Denies Medical/Surgical History Gastrointestinal History: Reports: Cholelithiasis Endocrine/Metabolic History: Reports: Hypothyroidism - Past Surgical History GI Surgical History: Reports: Cholecystectomy Female Surgical History: Reports: Section Social & Family History - Family History Family Medical History: Noncontributory - Tobacco Use Smoking Status *Q: Never Smoker - Caffeine Use Caffeine Use: Reports: Coffee, Tea - Recreational Drug Use Recreational Drug Use: No ED ROS GENERAL - Review of Systems Review Of Systems: See Below Constitutional: Denies: Fever, Chills, Diaphoresis HEENT: Denies: Throat Pain Respiratory: Denies: Shortness of Breath Cardiovascular: Denies: Chest Pain GI/Abdominal: Reports: Abdominal Pain, Constipation, Decreased Appetite, Nausea. Denies: Diarrhea, Vomiting Musculoskeletal: Reports: Shoulder Pain (Left shoulder intermittent). Denies: Back Pain Skin: Reports: No Symptoms Neurological: Reports: No Symptoms ED EXAM, GI/ABD - Physical Exam Exam: See Below General Appearance: Alert, Moderate Distress Throat/Mouth: Normal Inspection Head: Atraumatic Neck: Supple, Full Range of Motion Respiratory/Chest: No Respiratory Distress, Lungs Clear, Normal Breath Sounds Cardiovascular: Tachycardia GI/Abdominal Exam: Soft, Tender (Moderately tender upper mid abdomen, mild diffuse tenderness lower abdomen, very mild guarding and rebound tenderness upper abdomen) Extremities: Normal Inspection Neurological: Alert, Oriented, No Motor/Sensory Deficits Skin Exam: Warm, Dry, Normal Color Course - Vital Signs Last Recorded V/S: Last Vital Signs Temp 97.3 F 04/30/18 14:47 Pulse 119 H 04/30/18 14:47 Resp 20 04/30/18 14:47 BP 143/97 H 04/30/18 14:47 Pulse Ox 99 04/30/18 14:47 - Orders/Labs/Meds Orders: Active Orders 24 hr Category Date Time Status Peripheral IV Care [RC] . DIRECTED Care 04/30/18 15:09 Active Abdomen 2V AP Flat Upright [CR] Stat Exams 04/30/18 15:58 Taken Sodium Chloride 0.9% [Normal Saline] 1,000 ml Med 04/30/18 15:15 Active IV ONETIME Sodium Chloride 0.9% [Saline Flush] Med 04/30/18 15:09 Active 10 ml FLUSH ASDIRECTED PRN Peripheral IV Insertion Adult [OM.PC] Stat Oth 04/30/18 15:09 Ordered Medication Orders Sodium Chloride (Normal Saline) 1,000 mls @ 999 mls/hr IV ONETIME [facility] Last Admin: 04/30/18 15:26 Dose: 999 mls/hr Sodium Chloride (Saline Flush) 10 ml FLUSH ASDIRECTED PRN PRN Reason: Keep Vein Open Last Admin: 04/30/18 15:34 Dose: 10 ml Labs: Laboratory Tests 04/30/18 04/30/18 Range/Units 15:23 16:14 WBC 13.45 H (3.98-10.04) K/mm3 RBC 4.19 (3.98-5.22) M/mm3 Hgb 12.3 (11.2-15.7) gm/L Hct 37.0 (34.1-44.9) % MCV 88.3 (79.4-94.8) fl MCH 29.4 (25.6-32.2) pg MCHC 33.2 (32.2-35.5) g/dl RDW Std Deviation 39.4 (36.4-46.3) fL Plt Count 556 H (182-369) K/mm3 MPV 9.0 L (9.4-12.3) fl Neutrophils % (Manual) 83 H (40-60) % Band Neutrophils % 0 (0-10) % Lymphocytes % (Manual) 13 L (20-40) % Atypical Lymphs % 0 % Monocytes % (Manual) 4 (2-10) % Eosinophils % (Manual) 0 L (0.7-5.8) % Basophils % (Manual) 0 L (0.1-1.2) Toxic Granulation Few Platelet Estimate Increased Plt Morphology Comment Normal RBC Morph Comment Normal Sodium 138 (136-145) mEq/L Potassium 3.7 (3.5-5.1) mEq/L Chloride 103 (98-107) mEq/L Carbon Dioxide 27 (21-32) mEq/L Anion Gap 11.7 (5-15) BUN 9 (7-18) mg/dL Creatinine 0.7 (0.55-1.02) mg/dL Est Cr Clr Drug Dosing TNP Estimated GFR (MDRD) > 60 (>60) mL/min BUN/Creatinine Ratio 12.9 L (14-18) Glucose 115 H (74-106) mg/dL Calcium 8.3 L (8.5-10.1) mg/dL Total Bilirubin 1.8 H (0.2-1.0) mg/dL GGT 129 H (5-55) U/L AST 83 H (15-37) U/L ALT 171 H (14-59) U/L Alkaline Phosphatase 190 H (46-116) U/L Total Protein 7.0 (6.4-8.2) g/dl Albumin 2.7 L (3.4-5.0) g/dl Globulin 4.3 gm/dL Albumin/Globulin Ratio 0.6 L (1-2) Lipase 120 (73-393) U/L Meds: Medications Generic Name Dose Route Start Last Admin Trade Name Freq PRN Reason Stop Dose Admin Sodium Chloride 1,000 mls @ 999 mls/hr 04/30/18 15:15 04/30/18 15:26 Normal Saline IV 999 mls/hr ONETIME [facility] Administration Sodium Chloride 10 ml 04/30/18 15:09 04/30/18 15:34 Saline Flush FLUSH 10 ml ASDIRECTED PRN Administration Keep Vein Open Discontinued Medications Generic Name Dose Route Start Last Admin Trade Name Shayna PRN Reason Stop Dose Admin Hydromorphone HCl 0.5 mg 04/30/18 15:09 04/30/18 15:26 Dilaudid IVPUSH 04/30/18 15:10 0.5 mg ONETIME ONE Administration Hydromorphone HCl 0.5 mg 04/30/18 18:07 04/30/18 18:12 Dilaudid IVPUSH 04/30/18 18:08 0.5 mg ONETIME ONE Administration Ondansetron HCl 4 mg 04/30/18 15:09 04/30/18 15:26 Zofran IVPUSH 04/30/18 15:10 4 mg ONETIME ONE Administration - Re-Assessments/Exams Free Text/Narrative Re-Assessment/Exam: 04/30/18 16:49 White blood count 13,450, bilirubin 1.8, liver enzymes are all mildly elevated as documented, more elevated than when she was admitted this past Wednesday preoperative. Flat and upright of the abdomen does show moderate stool on the right but no air-fluid levels left colon and descending colon looks fairly empty. I discussed this with Dr. Jamil Fenton, our General Surgeon communications clerk this weekend. He suggests we get a HIDA scan but we do not have a HIDA scan or MRCP availability here on the weekend. I have called [facility], their GI specialist communications clerk this weekend does not do MRCP so they suggest we transfer to [facility]. I have discussed this with Dr. Dallas, GI specialist at [facility] who does agree patient should be transferred to get HIDA scan, MRCP if needed and interventional ERCP or other treatment as needed. Dr Marcial Martinez, General Surgeon communications clerk accepting and admitting Physician. Patient was feeling more comfortable after 0.5 mg Dilaudid IV, Zofran IV 1 L fluid IV but pain is starting to come back. I suggested we transfer by ground ambulance but she prefers to go private vehicle. She is worried about the additional cost of ambulance transfer and not sure if her out of state insurance will cover being out of network. We have given another 0.5 mg dilaudid IV just prior to patient discharge. Departure - Departure Time of Disposition: 18:03 Disposition: DC/Tfer to [facility] 02 Condition: Fair Clinical Impression: Abdominal pain Qualifiers: Abdominal location: upper abdomen, unspecified Qualified Code(s): R10.10 - Upper abdominal pain, unspecified - Discharge Information Referrals: PCP,None [Family Provider] - Forms: ED Department Discharge Additional Instructions: Transfer to [facility], [place] for direct admission, Dr Marcial Martinez , admitting Physician for further evaluation and treatment of your continued abdominal pain S/P Cholecystectomy. Do not have anything to eat or drink during the transfer. We have offered to have you transferred by ground ambulance but you are choosing to go by private vehicle. - My Orders Last 24 Hours: My Active Orders 04/30/18 15:09 Peripheral IV Care [RC] . DIRECTED Sodium Chloride 0.9% [Saline Flush] 10 ml FLUSH ASDIRECTED PRN Peripheral IV Insertion Adult [OM.PC] Stat 04/30/18 15:15 Sodium Chloride 0.9% [Normal Saline] 1,000 ml IV ONETIME 04/30/18 15:58 Abdomen 2V AP Flat Upright [CR] Stat - Assessment/Plan Last 24 Hours: My Active Orders 04/30/18 15:09 Peripheral IV Care [RC] . DIRECTED Sodium Chloride 0.9% [Saline Flush] 10 ml FLUSH ASDIRECTED PRN Peripheral IV Insertion Adult [OM.PC] Stat 04/30/18 15:15 Sodium Chloride 0.9% [Normal Saline] 1,000 ml IV ONETIME 04/30/18 15:58 Abdomen 2V AP Flat Upright [CR] Stat
--- NOTE | 2018-05-02 07:00 | CR ---
Abdomen: Supine and upright views of the abdomen were obtained. Comparison: No prior abdominal x-ray. Scattered gas within the colon is seen which appears within normal limits. Several mildly prominent gas-filled loops of small bowel being seen within the upper right abdomen. Surgical clips are seen within the upper right abdomen. No free air is seen. Elevated right hemidiaphragm is noted. Impression: 1. Prior cholecystectomy. 2. Elevated right hemidiaphragm. 3. Several mildly prominent small bowel loops within the upper right abdomen most likely due to focal ileus from prior gallbladder surgery. Diagnostic code #3
== END 2018-04-30 18:22 ==
LOC: SUPCPDRO 14:37 → JD.ED 14:37
DX: R10.10 Upper abdominal pain, unspecified (principal); E03.9 Hypothyroidism, unspecified; Z79.899 Other long term (current) drug therapy
CPT/HCPCS: 36415; 74019; 80053; 82977; 83690; 85007; 85027; 96361; 96374; 96375; 96376; 99285; J1170; J2405; J7040; J7050; 99284